=== PATIENT | female | born 1980 | race Caucasian/White ===

== ENCOUNTER 2020-11-22 09:08 | Outpatient (REF) | payer OTHER, SELFPAY | END 2020-11-22 09:09 | disposition home or self-care (01) | LOC: HO.SCI 09:08 | DX: Z13.89 Encounter for screening for other disorder (principal) ==

== ENCOUNTER 2023-08-27 | Outpatient (REF) | payer OTHER, SELFPAY ==
[2023-08-31 03:48] LABS: HPV mRNA E6/E7 rflx Not Detected (Not Detected)
== END 2023-08-27 00:01 ==
LOC: HO.HHCLNP
PROVIDERS: Visit Provider Advanced Practice Midwife
DX: Z12.4 Encounter for screening for malignant neoplasm of cervix (principal); Z11.51 Encounter for screening for human papillomavirus (HPV); N39.3 Stress incontinence (female) (male)
CPT/HCPCS: 87086; 87624; 88142

== ENCOUNTER 2025-03-31 11:21 | Outpatient (REF) | payer OTHER, SELFPAY ==
--- OUTSIDE RECORDS SUMMARY | 2025-02-19 11:30 | XMS_ITS | Continuity of Care Document ---
Author Organization [facility] Address [address] [place] [address] Dr [address] [place] [phone] Phone Care Team Providers Care Mechanical Assembly Technician Name Role Phone Truman OLIVERA, AIDEN, Naresh [...] Mins- [place] & [place] [facility], [address] [place] [address] Dr Odom [address] 1000Sam [place], [id number], [place] tel:[phone] [facility] Lymphedema, not elsewhere classifiedVenou s insufficiency (chronic) (peripheral)Patel n in right legPain in left legRestless legs syndromeHeredit judy lymphedemaCramp and spasmLocalized edema 5 Truman OLIVERA RVT, RPVI Robert. [address] [facility] [address], [place], [place], [id number] , [place]. tel:[phone] [facility], [address] [place] [address] [address] Odom [address] 1000Sam [place], [id number], [place] tel:[phone] [facility] Chronic venous hypertension (idiopathic) with other complications of bilateral lower extremity 5 Truman MDAIDEN RPVI Robert. [address] [facility], [address], [place], [id number] , . tel:[phone] Referring Provider: Naresh Laughlin MD, FAUSTINA WOLFE, [address] [facility] [address], [place], [address] . tel:[phone] Family History Family Member Type Diagnosis Age At Onset No Information Payers Payer name Insurance type Covered libertarian ID Ilsa miller[facility] [id number] Social History Type Description Quantity Date Captured [...] Body mass index (BMI) 31.0-31.9, adult) ordered Appointment Cindy Phan BOOKED Appointment Cindy Phan BOOKED Appointment Cindy Phan BOOKED Appointment Cindy Phan BOOKED History Of Present Illness Encounter Date Complaint History Of Prese nt Illness No Information Functional Status Date Functional Assessmen t No Information Instructions Date Instruction Additional Infor binu Diet education Related to Body mass index [...]
--- OUTSIDE RECORDS SUMMARY | 2025-03-31 12:40 | XMS_ITS | Clinical Summary ---
Author Organization [employer] Address [address] [facility] 7[address] [place] [address] Care Team Providers Care Fundraising Director Name Role Phone Samira Staley Primary Care Provider [phone] Allergies No known active allergies Medications Blood Pressure Monitor [facility] Check BP daily 1 each 03/31/2025 Active Active Problems Problem Noted Date Diagnosed Date Elevated BP without diagnosis of hypertension Assessment & Plan (03/31/2025 11:20 AM EDT): -Goal BP < 130/80 per ACC/AHA guideline (Treatment threshold >=140/90) -Stage I hypertension, possibly transient -Continue working on lifestyle modifications -Recommended self-monitoring BP. -Follow up for BP in 1 mo with our RN. If SBP is elevated at home and at the clinic, start either amlodipine 2.5 mg daily or olmesartan (needs reliable contraception). Mixed anxiety and depressive disorder 01/03/2024 Chronic back pain 01/03/2024 Encounters Date Type Department Care Team Description 03/31/2025 10:45 AM EDT Office Visit [facility] [address] [place] [phone] Misa Kolb MD Routine general medical examination at a health care facility (Primary Dx); Immunity status testing; Vitamin D insufficiency; Elevated BP without diagnosis of hypertension; Colon cancer screening; Dietary counseling; Exercise counseling; Class 1 obesity due to excess calories without serious comorbidity with body mass index (BMI) of 32.0 to 32.9 in adult; Encounter for screening for respiratory tuberculosis 03/31/2025 Travel 03/30/2025 Travel 03/30/[address] [facility] [address] [place] [address] Samira Staley ANP Chart Prep 03/24/[address] [facility] [address] [place] [address] Samira Staley ANP Lab Orders 03/17/2025 Telephone [facility] [address] [place] [address] Samira Staley ANP Referral 01/05/[address] [address] Samira Staley ANP from Last 3 Months Immunizations Immunization Administration Dates Next Due Influenza injectable quadriv alent preservative free 06/20/2023,06/14/2022,08/31/2017 Influenza, IIV3, injectable 10/11/2016,0 06/05/2014,07/11/2013,2011,07/27/2011 Influenza, seasonal, injecta ble, preservative free 06/18/2024 Tdap 03/31/2025,07/31/2014 Social History Tobacco Use Types Packs/Day Years Used Date Smoking Tobacco: Never Smokeless Tobacco: Never Tobacco Cessation:Counseling Given: Not Answered Alcohol Answer Date Recorded How often do you have a drink containing alcohol ? 2 03/31/2025 How many drinks containing a lcohol do you have on a typical day when you are drinking? 1 03/31/2025 How often do you have six or more drinks on one occasion? 1 03/31/2025 Depression Answer Date Recorded Patient Health Questionnaire-9 Score 0 03/31/2025 Patient Health Questionnaire-9 Score 0 03/31/2025 Last PHQ-9: Questionnaire Data Not on file 0 03/31/2025 Housing Stability Answer Date Recorded What is your housing situation today? I have rolan cruz 06/19/[address] you li ve. Do you have problems with any of the following? None of the above 06/19/2024 Food Insecurity Answer Date Recorded Within the past 12 months, y ou worried that your food would run out before you got money to buy more: Never True 06/19/2024 Within the past 12 months,th e food you bought just didn't last and you didn't have enough money to get more: Never True 06/2024 Transportation Answer Date Recorded In the past 12 months, has l ack of transportation kept you from medical appts, meetings, work or from getting things needed for daily living? No 06/19/2024 Utilities Answer Date Recorded In the past 12 months, has t he electric, gas, oil or water company threatened to shut off services in your home? No 06/19/2024 Depression Answer Date Recorded Patient Health Questionnaire-2 Score 0 03/31/2025 Internet Access Answer Date Recorded Internet Access Q1 Yes 06/19/2024 Internet Access Q2 Not on file 06/19/2024 Comments No Sex and Gender Information Value Date Recorded Sex Assigned at Female 07/10/2022 10:36 AM EDT Legal Sex Female 10:36 AM EDT Gender Identity Female 07/10/2022 10:36 AM EDT Sexual Orientation Straight 07/10/2022 10 :36 AM EDT Last Filed Vital Signs Vital Sign Reading Time Taken Comments Blood Pressure 144/92 03/31/2025 11:18 AM EDT Pulse 84 03/31/2025 10:39 AM EDT Temperature 36.4 C (97.6 F) 03/31/2025 10:39 AM EDT Respiratory Rate 16 03/31/2025 10:39 AM EDT Oxygen Saturation 98% 07/31/2023 12:57 PM EST Inhaled Oxygen Concentration - - Weight 87.7 kg (193 lb 6.4 oz) 03/31/2025 10:39 AM EDT Height 165.1 cm (5' 5 ) 03/31/2025 10:39 AM EDT Body Mass Index 32.18 03/31/2025 10:39 AM EDT Plan of Treatment Health Maintenance Due Date Last Done Comments CT Colonography 1979 Colonoscopy 1979 Colorectal Cancer Screening 1979 FIT DNA/Cologuard 1979 FIT 1979 FOBT 1979 HIV Screening 1980 Sigmoidoscopy 1979 Family Planning (PISQ) 1994 Hepatitis B Vaccines (1 of 3 - 19+ 3-dose series) 1998 Mammogram 2019 COVID-19 Vaccine ( season) 2024 10/21/2021, 12/21/2020, 11/30/2020 Influenza Vaccine (#1) 2025 4, 06/20/2023, 06/14/2022, Additional history exists Lipid Panel 06/17/2025 06/17/2020 Alcohol/Substance Use Screening 03/31/2026 03/31/2025 Depression Screening 03/31/2026 03/31/2025, 03/31/20 25 Disability Screening 03/31/2026 03/31/2025 SDOH Screening 03/31/2026 03/31/2025 Tobacco Screening 03/31/2026 03/31/2025 Pap Smear 08/27/2026 08/27/2023 Cervical Cancer Screening 08/27/2028 HPV/Cotest 08/27/2028 08/27/2023, 11/18/2021 Zoster Vaccines (1 of 2) 2029 DTaP/Tdap/Td Vaccines (3 - Td or Tdap) 03/31/2035 03/31/2025, 07/31/2014 RSV Patients and Patients Aged 60 years or older (1 - 1-dose 75+ series) 2054 Hepatitis C Screening Completed 06/17/2020 HIB Vaccines Aged Out No longer eligi ble based on patient's age to complete this topic HPV Vaccines Aged Out No longer eligi ble based on patient's age to complete this topic Hepatitis A Vaccines Aged Out No long er eligible based on patient's age to complete this topic IPV Vaccines Aged Out No longer eligi ble based on patient's age to complete this topic Meningococcal B Vaccine Aged Out No l onger eligible based on patient's age to complete this topic Meningococcal Vaccine Aged Out No maria luisa ilana eligible based on patient's age to complete this topic Pneumococcal Vaccine: Pediatrics (0 to 5 Years) and At-Risk Patients (6 to 49) Years Aged Out No longer eligible based on patient's age to complete this topic RSV under 20 months Aged Out No longe r eligible based on patient's age to complete this topic Rotavirus Vaccines Aged Out No longer eligible based on patient's age to complete this topic Procedures Procedure Name Priority Date/Time Associated Diagnosis Comments HPV MRNA E6/E7 REFLEX TO HPV 16, 18/45 Routine 08/27/2023 2:19 PM EST PAP SMEAR Routine 08/27/2023 2:19 PM EST Cervical cancer screening ZZZ HISTORICAL HEPATITIS C AB W/REFL TO HCV RNA, QN, PCR Routine 06/17/2020 1:14 PM EDT LIPID PANEL, STANDARD Routine 06/17/2020 1:14 PM EDT from Last 3 Months or Most Recently Relevant to Health Maintenance Results * HPV mRNA E6/E7 w/Reflex to HPV Genotypes 16, 18/45 (08/27/2023 2:19 PM EST) HPV nRNA E6/E7 Not Detected Not Detected [facility] Comment:Methodology: Transcr iption-Mediated AmplificationThis assay detects E6/E7 viral messenger RNA (mRNA) from 14high-risk HPV types (16,18,31,33,35,39,45,51,52,56,58,59,66,68).Cervical sources are required for HPV testing.If a vaginal source from a patient who has had atotal hysterectomy with removal of cervix wassubmitted, please contact the testing laboratoryfor alternative testing options.For additional information, please refer tohttp://education.PerSay/faq/IGL276s2(This link if provided for information/educational purposes only.)THIS TEST WAS PERFORMED AT:[facility] [place] [phone] TEE MD HPV mRNA E6/E7 [facility] HPV 16 RNA [facility] HPV 18/45 RNA [facility] 08/27/2023 2:19 PM EST 08/28/2023 8:30 AM EST us Tressa SHABAZZ LAB CYTOLOGY ORDERABLES F inal Result [facility] [address] [place] [phone] * Pap Smear (08/27/2023 2:19 PM EST) Swab Cervix uteri structure / Unknown 08/27/2023 2:19 PM EST 08/28/2023 8:30 AM EST [facility] - 09/05/2023 1:01 PM EST ----- ------- Name: NANCY PHAN Age/Sex: 43/F : 1980 Unit#: [id number] Attend Dr: Re08/27/23 Status: PRE REF Location: .LNP Disch: ----- ------- SPEC : [id number] RECD: 08/28/23 STATUS: SELENA KNUTSON NUM: [id number] KALEN: 08/27/239 [facility] DR: TRESSA BALLESTEROS ENTERED: 08/28/23 SP TYPE: Pap [facility] DR: ORDERED: Pap Smear Interpretation Satisfactory for evaluation. Blood. Negative for intraepithelial lesion or malignancy. HPV mRNA E6/E7: NOT DETECTED This assay detects E6/E7 viral messenger RNA (mRNA) from 14 high-risk HPV types (16, 18, 31, 33, 35, 39, 45, 51, 52, 56, 58, 59, 66, 68) HPV testing performed by [facility], [place], [place]. See reference laboratory portion of the EMR for entire report. Clinical Information LMP: 08/25/2023 Previous PAP test: Unknown date/findings Material Received ThinPrep-Cervical ----- ------- Signed (signature on file) KRISTEN Rudolph ([facility]) 09/05/23 1301 ----- ------- END OF REPORT Tressa Ballesteros [facility] CYTOLOGY ORDERABLES F inal Result [facility] [address] [place] [address] [phone] * HEPATITIS C AB W/REFL TO HCV RNA, QN, PCR (06/17/2020 1:14 PM EDT) HEPATITIS C ANTIBODY NON-REACT CHIDI NON-REACT CHIDI [facility] INDEX 0.02 <1.00 [facility] Comment: HCV antibody was non-reactive. There is no laboratory evidence of HCV infection. In most cases, no further action is required. However, if recent HCV exposure is suspected, a test for HCV RNA (test code 73576) is suggested. For additional information please refer to http://education.PerSay/faq/TME35n2 (This link is being provided for informational/ educational purposes only.) HEPATITIS C ANTIBODY NON-REACT CHIDI NON-REACT CHIDI [facility] INDEX 0.02 <1.00 [facility] Comment: HCV antibody was non-reactive. There is no laboratory evidence of HCV infection. In most cases, no further action is required. However, if recent HCV exposure is suspected, a test for HCV RNA (test code 29350) is suggested. For additional information please refer to http://education.PerSay/faq/GVZ09b4 (This link is being provided for informational/ educational purposes only.) 06/17/2020 1:14 PM EDT us Historical Provider HISTORICAL/NON ORDERABLE LABS Final Result [facility] [address] [place] [address], * LIPID PANEL, STANDARD (06/17/2020 1:14 PM EDT) Triglycerides 129 <150 mg/dL [facility] Cholesterol, Total 175 <200 mg/dL [facility] HDL Cholesterol 53 > OR = 50 mg/dL [facility] Triglycerides 129 <150 mg/dL [facility] LDL Cholesterol 99 mg/dL (calc) [facility] Comment: Reference range: <100 Desirable range <100 mg/dL for primary prevention; <70 mg/dL for patients with CHD or diabetic patients with > or = 2 CHD risk factors. LDL-C is now calculated using the Brigido-Jacobo calculation, which is a validated novel method providing better accuracy than the Friedewald equation in the estimation of LDL-C. Brigido GILES et al. KI. 2013;310(19): 2668-8340 (http://education.Ravti.VaultLogix/faq/RBN477) Chol/HDLC Ratio 3.3 <5.0 (calc) [facility] Non-HDL Cholesterol 122 <130 mg/dL (calc) [facility] Comment: For patients with diabetes plus 1 major ASCVD risk factor, treating to a non-HDL-C goal of <100 mg/dL (LDL-C of <70 mg/dL) is considered a therapeutic option. HDL Cholesterol 53 > OR = 50 mg/dL [facility] Non-HDL Cholesterol 122 <130 mg/dL (calc) [facility] Comment: For patients with diabetes plus 1 major ASCVD risk factor, treating to a non-HDL-C goal of <100 mg/dL (LDL-C of <70 mg/dL) is considered a therapeutic option. Cholesterol, Total 175 <200 mg/dL [facility] LDL Cholesterol 99 mg/dL (calc) [facility] Comment: Reference range: <100 Desirable range <100 mg/dL for primary prevention; <70 mg/dL for patients with CHD or diabetic patients with > or = 2 CHD risk factors. LDL-C is now calculated using the Capo calculation, which is a validated novel method providing better accuracy than the Friedewald equation in the estimation of LDL-C. Brigido SS et al. KI. 2013;310(19): 0920-0866 (http://education.Skillset/faq/CDS283) Chol/HDLC Ratio 3.3 <5.0 (calc) [facility] 06/17/2020 1:14 PM EDT us Historical Provider LAB BLOOD ORDERABLES Sandy mandujano Result [facility] [address] from Last 3 Months or Most Recently Relevant to Health Maintenance Insurance [facility] Care Teams Fundraising Director Relationship Specialty Start Date End Date Samira Staley ANP [address] [place] [phone] PCP - General Family Medicine 04/28/21
[2025-03-31 14:20] LABS: HBS Num1 28.25 mIU/mL (0-7.99); ~Hepatitis B Surface Antibody REACTIVE (Nonreactive)
[2025-04-03 05:38] LABS: TS Negative Control Passed; TS Panel A 0; TS Panel B 1; TS Positive Control Passed; TSpotTB Negative (Negative)
== END 2025-03-31 11:22 | disposition home or self-care (01) ==
LOC: HO.HHCL 11:21
PROVIDERS: PCP Family Medicine; Visit Provider Family Medicine
DX: Z01.84 Encounter for antibody response examination (principal); Z11.1 Encounter for screening for respiratory tuberculosis; E55.9 Vitamin D deficiency, unspecified
CPT/HCPCS: 36415; 82306; 86481; 86706

== ENCOUNTER 2025-04-27 15:41 | Outpatient (REF) | payer OTHER, SELFPAY ==
--- OUTSIDE RECORDS SUMMARY | 2025-02-19 11:30 | XMS_ITS | Continuity of Care Document ---
Author Organization [facility] Address [address] [place] [address] [address] [place] [address] Phone Care Team Providers Care General Passenger Agent Name Role Phone Truman OLIVERA, AIDEN, Naresh WEEMS Unavailable U navailable Procedures Procedure Date Office/Oupt E&M New Pt 30 Mins- CT & [place] Duplex Scan-extrem Veins; Comp- CT & [place] Advance Directives Directive Yes / No Effective Date File Name No Information Encounters Encounter Description Practice Location Reason(s) For Visit Diagnoses Date Provider Providers Copied on Encounter Office/Oupt E&M New Pt 30 Mins- [place] & [place] [facility], [address] [place] [address] Dr Odom [address]Sam [place], [id number], [place] tel:[phone] [facility] Lymphedema, not elsewhere classifiedVenou s insufficiency (chronic) (peripheral)Patel n in right legPain in left legRestless legs syndromeHeredit judy lymphedemaCramp and spasmLocalized edema 5 Truman OLIVERA RVT, RPVI Robert. [address] [facility] [address], [place], [place], [id number] , [place]. tel:[phone] [facility], [address] [place] [address] Dr Odom [address]Sam [place], [id number], [place] tel:[phone] [facility] Chronic venous hypertension (idiopathic) with other complications of bilateral lower extremity 5 Truman MDAIDEN RPVI Robert. [address] [facility], [address], [place], [id number] , . tel:[phone] Referring Provider: Naresh Laughlin MD, AIDEN, FAUSTINA, [address] [facility] [address], [place], [address] . tel:[phone] Family History Family Member Type Diagnosis Age At Onset No Information Payers Payer name Insurance type Covered alliance party ID Ilsa miller(justiceAppticles [facility] [id number] Social History Type Description Quantity Date Captured Comments Alcohol Use Details Unknown Caffeine Use Details Unknown Tobacco Use Status Current non-smoker Smoking Status Never Smoker Non-Smoking Tobacco Use Details : No Details Available : No Details Available Sex Female Vital Signs Date / Time: Height Weight BMI Pulse Rate Blood Pressure Temperature Respiratory Rate Body Surface Area Head Circumference Head Circ. Percentile Wt./Cali. Percentile BMI percentile Pulse Ox Inhaled Ox 85.730 kg (189.00 lbs) 31.5 3 kg/m eter (2) 120/80 mm[Hg] Chief Complaint And Reason For Visit No Information Reason For Referral Reason For Referral No Information Plan Of Treatment Date Type Action Status Goal Diet education completed Referral Ordered: Weight management: Referral to physician timeframe: 3 Months (related to Body mass index (BMI) 31.0-31.9, adult) ordered History Of Present Illness Encounter Date Complaint History Of Prese nt Illness No Information Functional Status Date Functional Assessmen t No Information Instructions Date Instruction Additional Infor mation Diet education Related to Body mass index (BMI) 31.0-31.9, adult Giving Encouragement to exercise Related to Body mass index (BMI) 31.0-31.9, adult Lifestyle education Related to B hoang mass index (BMI) 31.0-31.9, adult Patient education booklet given Related to Venous insufficiency (chronic) (peripheral) Assessments Type Assessment Date No Information Patient Care Teams Name Effective Dates (start - stop) Status Members No Information
--- NOTE | ~2025-04-27 | MM_ITS ---
EXAMINATION: MM SCREENING DIGITAL BREAST TOMOSYNTHESIS, BILATERAL CLINICAL INFORMATION: Screening. Asymptomatic. COMPARISON: Mammography: Baseline. TECHNIQUE: Digital breast mammography with tomosynthesis is performed in both the craniocaudal and mediolateral oblique views along with computer-aided detection (CAD). FINDINGS: There are scattered areas of fibroglandular density (ACR BI-RADS breast composition Category b). Left: Normal-appearing intramammary lymph node upper outer quadrant posterior depth. Focal asymmetry upper outer breast anterior to middle depth. No suspicious calcifications or other abnormal findings. Right: There are no significant masses, abnormal calcifications, or other abnormalities. MM/MM tomosynthesis screening BI IMPRESSION: Additional imaging is recommended ASSESSMENT: BI-RADS BI-RADS 0 - Incomplete: Needs additional Imaging. RECOMMENDATION: 1. Additional views of the left breast. 2. Targeted ultrasound if warranted after review of the additional views. 3. Radiology department staff will contact the patient for additional imaging. Additional Imaging required This examination should not preclude the clinical evaluation of a suspicious palpable abnormality. This patient's information was entered into a reminder system with a target due date for their next mammogram. Electronically signed by: Kathleen Hein DO 04/29/2025 10:04 AM EDT
--- OUTSIDE RECORDS SUMMARY | 2025-04-27 16:04 | XMS_ITS | Encounter Summary ---
Author Organization [employer] Address [address] [facility] [address] [facility] [address] [place] [address] Care Team Providers Care Rn Oncology Research Name Role Phone Samira Staley Primary Care Provider [phone] Encounter Details Date Type Department Care Team ([facility] st Contact Info) Description 12/23/[address] [facility] [address] [place], [place] [phone] Samira Staley ANP [address] [place], [place] [phone] Social History Tobacco Use Types Packs/Day Years Used Date Smoking Tobacco: Never Smokeless Tobacco: Never Housing Stability Answer Date Recorded What is [...] off services in your home? No 06/19/2024 Internet Access Answer Date Recorded Internet Access Q1 Yes 06/19/2024 Internet Access Q2 Not on file 06/19/2024 Comments No Sex and Gender Information Value Date Recorded Sex Assigned at Female 07/10/2022 10:36 AM EDT Legal Sex Female 10:36 AM EDT Gender Identity Female 07/10/2022 10:36 AM EDT Sexual Orientation Straight 07/10/2022 10 :36 AM EDT documented as of this encounter Miscellaneous Notes * Telephone Encounter - Amita Gamino - 12/23/2024 1:22 PM EDT Tc from pt stating received a message to make a pap smear appointment. Author not sure recall date in the chart 2027 not clear for when they want her to have it done. documented in this encounter Plan of Treatment Upcoming Encounters Date Type Department Care Team (Late st Contact Info) Description 05/01/2025 1:15 PM EDT Office Visit [address] [address] Samira Staley ANP [address] [place] [phone] 05/01/2025 3:30 PM EDT Clinical Support [address] [address] 06/15/2025 3:15 PM EDT Office Visit [address] [address] Samira Stalye ANP [address] [place] [phone] documented as of this encounter Visit Diagnoses Not on filedocumented in this encounter Care Teams Rn Oncology Research Relationship Specialty Start Date End Date Samira Staley ANP [address] [place] [phone] PCP - General Family Medicine 04/28/21 documented as of this encounter
== END 2025-04-27 15:42 | disposition home or self-care (01) ==
LOC: HO.MAMMO 15:41
PROVIDERS: PCP Nurse Practitioner Primary Care; Visit Provider Nurse Practitioner Primary Care
DX: Z12.31 Encounter for screening mammogram for malignant neoplasm of breast (principal)
CPT/HCPCS: 77063; 77067

== ENCOUNTER → 2025-04-27 15:45 | Outpatient (BNV) | payer OTHER, SELFPAY | PROVIDERS: PCP Nurse Practitioner Primary Care; Visit Provider Internal Medicine | DX: Z12.31 Encounter for screening mammogram for malignant neoplasm of breast (principal) | CPT/HCPCS: 77063; 77067 ==

== ENCOUNTER 2025-05-08 12:13 | Outpatient (REF) | payer OTHER, SELFPAY ==
--- NOTE | ~2025-05-08 | US_ITS ---
EXAMINATIONS: 1. MM DIAGNOSTIC DIGITAL BREAST TOMOSYNTHESIS, LEFT 2. Targeted ultrasound of the left breast CLINICAL INFORMATION: Callback from baseline screening for left breast focal asymmetry in the upper outer quadrant anterior to middle depth. COMPARISON: April 27, 2025 TECHNIQUE: Digital breast tomosynthesis is performed in full-field ML 90 degrees along with computer-aided detection (CAD). Synthesized 2D images are generated from the tomosynthesis. Spot compression tomosynthesis images were also obtained. FINDINGS: BREAST COMPOSITION: There are scattered areas of fibroglandular density (ACR BI-RADS breast composition Category b). LEFT BREAST: Approximately 0.7 cm focal asymmetry persists on today's images in the upper outer quadrant at approximately 7 cm from the nipple (spot MLO 13/65, spot CC 38/57) . Targeted ultrasound of the left breast was performed as location of the mammographic finding. The survey shows a 0.4 x 0.1 x 0.4 cm hypoechoic solid mass surrounded by an echogenic halo, with a total size of 0.8 x 0.5 x 0.7 cm at 2 o'clock position at 7 cm from the nipple. Minimal vascularity demonstrated at the periphery of the mass with color Doppler evaluation. This correlates with the mammographic finding. US/US breast LT limited mamm only IMPRESSION: LEFT BREAST: 0.7 cm hypoechoic mass with echogenic halo at 2 o'clock position 7 cm from the nipple. Suspicious findings. Ultrasound-guided needle core biopsy is recommended. ASSESSMENT: BI-RADS 4 - Suspicious finding RECOMMENDATION: Biopsy recommended Results were discussed with the patient at time of visit. This patient's information was entered into a reminder system with a target due date for their next mammogram. Electronically signed by: Megan Monaco MD 05/08/2025 01:15 PM EDT
--- OUTSIDE RECORDS SUMMARY | 2025-05-08 12:55 | XMS_ITS | Encounter Summary ---
Author Organization [employer] Address [address] [place] [address] Care Team Providers Care Corporate General Manager Name Role Phone Samira Staley Primary Care Provider [phone] Encounter Details Date Type Department Care Team ([facility] st Contact Info) Description 12/23/2024 Telephone [facility] [address] [place], [place] [phone] Samira Staley ANP [address] [place], [place] [phone] Social History Tobacco Use Types Packs/Day Years [...] Care Team (Late st Contact Info) Description 06/15/2025 3:15 PM EDT Office Visit [facility] [address] [place] [address] Samira Staley ANP [address] [place] [address] documented as of this encounter Visit Diagnoses Not on filedocumented in this encounter Care Teams Corporate General Manager Relationship Specialty Start Date End Date Samira Staley ANP [address] [place] [address] PCP - General Family Medicine 04/28/21 documented as of this encounter
--- OUTSIDE RECORDS SUMMARY | 2025-05-08 12:56 | XMS_ITS | Clinical Summary ---
Author Organization [employer] Address [address] [facility] [address] [place] [address] Care Team Providers Care Used Car Salesperson Name Role Phone Luís aTmmi HERNANDEZ Primary Care Provider [phone] Allergies No known active allergies Medications Blood Pressure Monitor misc Check BP daily 1 each 03/31/2025 Active famotidine (Pepcid) 20 MG tabletIndication s:Gastroesophage al reflux disease, unspecified whether esophagitis present Take 1 tablet twice daily as needed for acid reflux 60 tablet 05/01/2025 Active Active Problems Problem Noted Date Diagnosed Date Elevated BP without diagnosis of hypertension Assessment & Plan (04/03/2025 10:47 AM EDT): -Goal BP < 130/80 per ACC/AHA guideline (Treatment threshold >=140/90) -Stage I hypertension, possibly transient -Continue working on lifestyle modifications -Recommended self-monitoring BP. -Follow up for BP in 1 mo with our RN. If SBP is elevated at home and at the clinic, start either amlodipine 2.5 mg daily or olmesartan (needs reliable contraception). -Consider asking alcohol and sodium intake again Mixed anxiety and depressive disorder 01/03/2024 Assessment & Plan (04/03/2025 10:44 AM EDT): - PHQ-9 score 0 and CHYNA-7 score of 0 on 03/29/2025 - Currently not on medication - Continue current mental health and wellness practice Chronic back pain 01/03/2024 Encounters Date Type Department Care Team Description 05/01/2025 1:15 PM EDT Office Visit [facility] [place] [place] [address] Tammi Rock ANP Gastroesophageal reflux disease, unspecified whether esophagitis present (Primary Dx) 05/01/2025 Travel 04/30/2025 Telephone [facility] [place] [address] Tammi Rock ANP chartprep 04/27/2025 Orders Only [address] [address] Tammi Rock ANP 04/27/[address] [address] Tammi Rock ANP Nurse Triage 04/21/[address] [address] Tammi Rock ANP Results 04/01/2025 Results Follow-Up [address] [address] Misa Kolb MD Vitamin D, 25-Hydroxy, Total, Immunoassay, Hepatitis B Surface Antibody, Qualitative 03/31/2025 10:45 AM EDT Office Visit [facility] [place] [address] Misa Kolb MD Routine general medical examination at a health care facility (Primary Dx); Immunity status testing; Vitamin D insufficiency; Elevated BP without diagnosis of hypertension; Colon cancer screening; Dietary counseling; Exercise counseling; Class 1 obesity due to excess calories without serious comorbidity with body mass index (BMI) of 32.0 to 32.9 in adult; Encounter for screening for respiratory tuberculosis; Mixed anxiety and depressive disorder 03/31/2025 Travel 03/30/2025 Travel 03/30/2025 Telephone [facility] [place] [address] Tammi Rock ANP Chart Prep 03/24/[address] [address] Tammi Rock ANP Lab Orders 03/17/[address] [address] Tammi Rock ANP Referral from Last 3 Months Immunizations Immunization Administration [...] Sign Reading Time Taken Comments Blood Pressure 110/68 05/01/2025 1:24 PM EDT Pulse 80 05/01/2025 1:24 PM EDT Temperature 36.8 C (98.2 F) 05/01/2025 1:24 PM EDT Respiratory Rate 14 05/01/2025 1:24 PM EDT Oxygen Saturation 94% 05/01/2025 1:24 PM EDT Inhaled Oxygen Concentration - - Weight 85 kg (187 lb 6.4 oz) 05/01/2025 1:24 PM EDT Height 165.1 cm (5' 5 ) 03/31/2025 10:39 AM EDT Body Mass Index 31.18 03/31/2025 10:39 AM EDT Plan of Treatment Upcoming Encounters Date Type Department Care Team (Late st Contact Info) Description 06/15/2025 3:15 PM EDT Office Visit [facility] [address] [place] [address] Tammi Rock, ANP [address] [place], [place] [phone] Health Maintenance Due Date Last Done Comments CT Colonography 1980 Colonoscopy 1980 Colorectal Cancer Screening 1980 FIT DNA/Cologuard 1979 FIT 1979 FOBT 1980 HIV Screening 1980 Sigmoidoscopy 1980 Family Planning (PISQ) 1994 COVID-19 Vaccine ( season) 2024 10/21/2021, 12/21/2020, 11/30/2020 Influenza Vaccine (#1) 2025 , 06/20/2023, 06/14/2022, Additional history exists Lipid Panel 06/17/2025 06/17/2020 Alcohol/Substance Use Screening 03/31/2026 03/31/2025 Depression Screening 03/31/2026 03/31/2025, 03/31/20 25 Disability Screening 03/31/2026 03/31/2025 SDOH Screening 03/31/2026 03/31/2025 Tobacco Screening 05/01/2026 05/01/2025 Pap Smear 08/27/2026 08/27/2023 Mammogram 04/27/2027 04/27/2025 Cervical Cancer Screening 08/27/2028 HPV/Cotest 08/27/2028 08/27/2023, [...] patient's age to complete this topic Hepatitis B Vaccines Discontinued IPV Vaccines Aged Out No longer eligi [...] Procedure Name Priority Date/Time Associated Diagnosis Comments BI MAMMOGRAM SCREENING TOMOSYNTHESIS BILATERAL Routine 04/27/2025 3:45 PM EDT T-SPOT(R).TB Routine 03/31/2025 11:42 AM EDT Encounter for screening for respiratory tuberculosis HEPATITIS B SURFACE ANTIBODY, QUALITATIVE Routine 03/31/2025 11:42 AM EDT Immunity status testing VITAMIN D,25-OH,TOTAL,IA Routine 03/31/2025 11:42 AM EDT Vitamin D insufficiency HPV MRNA E6/E7 REFLEX TO HPV 16, 18/45 Routine 08/27/2023 2:19 PM EST PAP SMEAR Routine 08/27/2023 2:19 PM EST Cervical cancer screening ZZZ HISTORICAL HEPATITIS C AB W/REFL TO HCV RNA, QN, PCR Routine 06/17/2020 1:14 PM EDT LIPID PANEL, STANDARD Routine 06/17/2020 1:14 PM EDT from Last 3 Months or Most Recently Relevant to Health Maintenance Results * BI Mammogram Screening Tomosynthesis Bilateral (04/27/2025 3:45 PM EDT) Anatomical Region Laterality Modality Breast Bilateral Mammography 04/27/2025 3:45 PM EDT Narrative 04/29/2025 10:07 AM EDT [facility] [address] [place] [address] Mammography Report Signed Patient: Nancy Phan MR#: [id number] : 1980 Acct:[id number] Age/Sex: 45 / F ADM Date: 04/27/25 Loc: HO.MAMMO Attending Dr: Tammi Rock NP Ordering Physician: TAMMI ROCK NP Results: 0Incomplete : Needs Additional Imaging Evaluation Date of Service: 04/27/25 Follow Up: Additional Imagi ng Procedure(s): MM tomosynthesis screening BI Accession Number(s): [id number] cc: TAMMI ROCK NP EXAMINATION: MM SCREENING DIGITAL BREAST TOMOSYNTHESIS, BILATERAL CLINICAL INFORMATION: Screening. Asymptomatic. COMPARISON: Mammography: Baseline. TECHNIQUE: Digital breast mammography with tomosynthesis is performed in both the craniocaudal and mediolateral oblique views along with computer-aided detection (CAD). FINDINGS: There are scattered areas of fibroglandular density (ACR BI-RADS breast composition Category b). Left: Normal-appearing intramammary lymph node upper outer quadrant posterior depth. Focal asymmetry upper outer breast anterior to middle depth. No suspicious calcifications or other abnormal findings. Right: There are no significant masses, abnormal calcifications, or other abnormalities. MM/MM tomosynthesis screening BI IMPRESSION: Additional imaging is recommended ASSESSMENT: BI-RADS BI-RADS 0 - Incomplete: Needs additional Imaging. RECOMMENDATION: 1. Additional views of the left breast. 2. Targeted ultrasound if warranted after review of the additional views. 3. Radiology department staff will contact the patient for additional imaging. Additional Imaging required This examination should not preclude the clinical evaluation of a suspicious palpable abnormality. This patient's information was entered into a reminder system with a target due date for their next mammogram. Electronically signed by: Kathleen Hein DO 04/29/2025 10:04 AM EDT Dictated By: Kathleen Hein DO Signed By: <Electronically signed by Kathleen Hein DO in OV> 04/29/25 1004 DD/ 1545 TD/TT: 04/27/25 1605 Rfid Developer: Procedure Note Donotuseinterpreter, Image - 04/29/2025 [facility] [address] [place] [address] Mammography Report Signed Patient: Krista Phan#: [id number] : 1980Acct:[id number] Age/Sex: 45 / FADM Date: 04/27/25 Loc: HO.MAMMO Attending Dr: Tammi Rock NP Ordering Physician: TAMMI ROCK NPResults: 0Incomplete : Needs Additional Imaging Evaluation Date of Service: 04/27/25Follow Up: Additional Imagi ng Procedure(s): MM tomosynthesis screening BI Accession Number(s): [id number] cc: TAMMI ROCK NP EXAMINATION: MM SCREENING DIGITAL BREAST TOMOSYNTHESIS, BILATERAL CLINICAL INFORMATION: Screening. Asymptomatic. COMPARISON: Mammography: Baseline. TECHNIQUE: Digital breast mammography with tomosynthesis is performed in both the craniocaudal and mediolateral oblique views along with computer-aided detection (CAD). FINDINGS: There are scattered areas of fibroglandular density (ACR BI-RADS breast composition Category b). Left: Normal-appearing intramammary lymph node upper outer quadrant posterior depth. Focal asymmetry upper outer breast anterior to middle depth. No suspicious calcifications or other abnormal findings. Right: There are no significant masses, abnormal calcifications, or other abnormalities. MM/MM tomosynthesis screening BI IMPRESSION: Additional imaging is recommended ASSESSMENT: BI-RADS BI-RADS 0 - Incomplete: Needs additional Imaging. RECOMMENDATION: 1. Additional views of the left breast. 2. Targeted ultrasound if warranted after review of the additional views. 3. Radiology department staff will contact the patient for additional imaging. Additional Imaging required This examination should not preclude the clinical evaluation of a suspicious palpable abnormality. This patient's information was entered into a reminder system with a target due date for their next mammogram. Electronically signed by: Kathleen Hein DO 04/29/2025 10:04 AM EDT RP Dictated By: Kathleen Hein DO Signed By: <Electronically signed by Kathleen Hein DO in OV> 04/29/25 1004 DD/ 1545 TD/TT: 04/27/25 1605 Rfid Developer: [facility] BI PROCEDURES Final Result * Vitamin D, 25-Hydroxy, Total, Immunoassay (03/31/2025 11:42 AM EDT) Vitamin D 25-OH Total 51.6 >30 ng/mL [facility] Comment: Health Based Reference Values*< 20 ng/mL Geocchugl57-42 ng/mL Insufficient> 30 ng/mL Sufficient*Paul HOU. N Engl J Med. 2007;357:266-280There is no well-established upper level of normal vitamin Dlevels. Some laboratories use 50 ng/mL as an upper limit ofnormal. However, toxicity is patient-dependent and may occurat any level. Careful correlation with the patient'spresentation is necessary and, if there is concern forvitamin D toxicity, treatment should be consideredirrespective of the serum level.Care must be taken in interpreting Vitamin D results fromdifferent laboratories and methodologies. Published datademonstrated that results from patients undergoinghemodialysis may show a negative bias when tested withvarious automated 25-OH vitamin D assays when compared toLC-MS/MS.When testing samples from patients whose predominant form ofVitamin D is Vitamin D2, such as patients receiving VitaminD2 supplementation, results that are subtherapeutic shouldbe confirmed with another method such as LC-MS/MS. Blood Venous blood specimen / Unknown 03/31/2025 11:42 AM EDT 03/31/2025 1:25 PM EDT us Misa Kolb MD LAB BLOOD ORDERABLES Final Resul t [facility] [address] [place] [address] [phone] * T-SPOT??.TB (03/31/2025 11:42 AM EDT) Pathologist [facility] T Spot TB Negative Negative [facility] Comment:A negative test resu lt does not exclude the possibilityof exposure to or infection with Mycobacteriumtuberculosis (M. tuberculosis). Patients with recentexposure to TB infected individuals exhibiting anegative T-SPOT.TB result should be considered forretesting within 6 weeks or if other relevant clinicalsymptoms indicate. Results from T-SPOT.TB testing mustbe used in conjunction with each individual'sepidemiological history, current medical status,and results of other diagnostic evaluations.The T-SPOT.TB test is qualitative and results arereported as positive, borderline, or negative, giventhat the test controls perform as expected. In linewith the Centers for Disease Control and Prevention's2010 recommendation to report quantitative measurementsalongside the qualitative result, the laboratoryprovides spot counts for informational purposes only.The T-SPOT.TB test should not be interpreted as aquantitative test. TS PANEL A 0 [facility] TS PANEL B 1 [facility] Negative Control Passed [facility] Positive Control Passed [facility] Comment:For additional infor binu, please refer tohttp://education.Signature/faq/TFB546(This link is being provided for informational/educational purposes only.)THIS TEST WAS PERFORMED AT:[employer] [place] [address]MRNMBRJJAYDEN ESPANA MD,PHD 03/31/2025 11:4 2 AM EDT 03/31/2025 1:25 PM EDT Misa Kolb MD LAB BLOOD ORDERABLES Final Resul t Performing Organization Address City/[facility]/ZIP Co de Phone Number [facility] [address] [place] [phone] * Hepatitis B Surface Antibody, Qualitative (03/31/2025 11:42 AM EDT) [facility] ~Hepatitis B Surface Antibody REACTIVE Nonreactive [facility] Comment:REACTIVE: > 11.99 mI U/mL Blood Venous blood specimen / Unknown 03/31/2025 11:42 AM EDT 03/31/2025 1:25 PM EDT Misa Kolb MD LAB BLOOD ORDERABLES Final Resul t Performing Organization Address [facility] Co de Phone Number [facility] [address] [place] [phone] * HPV mRNA E6/E7 w/Reflex to HPV Genotypes 16, 18/45 (08/27/2023 2:19 PM EST) [facility] HPV nRNA E6/E7 Not Detected Not Detected [facility] Comment:Methodology: Transcr iption-Mediated AmplificationThis assay detects E6/E7 viral messenger RNA (mRNA) from 14high-risk HPV types (16,18,31,33,35,39,45,51,52,56,58,59,66,68).Cervical sources are required for HPV testing.If a vaginal source from a patient who has had atotal hysterectomy with removal of cervix wassubmitted, please contact the testing laboratoryfor alternative testing options.For additional information, please refer tohttp://education.Signature/faq/DVP841a6(This link if provided for information/educational purposes only.)THIS TEST WAS PERFORMED AT:[employer] [place] [id number] TEE MD HPV mRNA E6/E7 TNP [facility] HPV 16 RNA TNP [facility] HPV 18/45 RNA [facility] 08/27/2023 2:19 PM EST 08/28/2023 8:30 AM EST us Tressa Ballesteros [facility] CYTOLOGY ORDERABLES F inal Result [facility] [address] [place] [phone] * Pap Smear (08/27/2023 2:19 PM EST) Swab Cervix uteri structure / Unknown 08/27/2023 2:19 PM EST 08/28/2023 8:30 AM EST Narrative [facility] - 09/05/2023 1:01 PM EST ----- ------- Name: NANCY PHAN Age/Sex: 43/F : 1980 Unit#: [id number] Attend Dr: Re08/27/23 Status: PRE REF Location: [facility] Disch: ----- ------- SPEC : [id number] RECD: 08/28/23 STATUS: SELENA KNUTSON NUM: [id number] KALEN: 08/27/[address] [facility] DR: TRESSA BALLESTEROS CNM ENTERED: 08/28/23 SP TYPE: Pap Smr OT DR: ORDERED: Pap Smear Interpretation Satisfactory for evaluation. Blood. Negative for intraepithelial lesion or malignancy. HPV mRNA E6/E7: NOT DETECTED This assay detects E6/E7 viral messenger RNA (mRNA) from 14 high-risk HPV types (16, 18, 31, 33, 35, 39, 45, 51, 52, 56, 58, 59, 66, 68) HPV testing performed by [employer], [place], [place]. See reference laboratory portion of the EMR for entire report. Clinical Information LMP: 08/25/2023 Previous PAP test: Unknown date/findings Material Received ThinPrep-Cervical ----- ------- Signed (signature on file) KRISTEN Rudolph (ASCP) 09/05/23 1301 ----- ------- END OF REPORT Tressa Ballesteros CNM LAB CYTOLOGY ORDERABLES F inal Result [facility] [address] [place] [phone] * HEPATITIS C AB W/REFL TO HCV RNA, QN, PCR (06/17/2020 1:14 PM EDT) HEPATITIS C ANTIBODY NON-REACT CHIDI NON-REACT [facility] INDEX 0.02 <1.00 [facility] Comment: HCV antibody was non-reactive. There is no laboratory evidence of HCV infection. In most cases, no further action is required. However, if recent HCV exposure is suspected, a test for HCV RNA (test code 71711) is suggested. For additional information please refer to http://Kuddle/faq/HHK79n0 (This link is being provided for informational/ educational purposes only.) HEPATITIS C ANTIBODY NON-REACT CHIDI NON-REACT CHIDI [facility] INDEX 0.02 <1.00 [facility] Comment: HCV antibody was non-reactive. There is no laboratory evidence of HCV infection. In most cases, no further action is required. However, if recent HCV exposure is suspected, a test for HCV RNA (test code 24320) is suggested. For additional information please refer to http://Kuddle/faq/EWS68u7 (This link is being provided for informational/ educational purposes only.) 06/17/2020 1:14 PM EDT us Historical Provider HISTORICAL/NON ORDERABLE LABS Final Result [facility] [address] * LIPID PANEL, STANDARD (06/17/2020 1:14 PM [...] LDL-C. Brigido SS et al. KI. 2013;310(19): 1455-3133 (http://education.Fanplayr.com/faq/GMB466) Chol/HDLC Ratio 3.3 <5.0 (calc) [facility] [...] LDL-C. Brigido SS et al. KI. 2013;310(19): 9088-5681 (http://education.Fanplayr.com/faq/GCU651) Chol/HDLC Ratio 3.3 <5.0 (calc) [facility] 06/17/2020 1:14 PM EDT us Historical Provider LAB BLOOD ORDERABLES Sandy mandujano Result [facility] [address] from Last 3 Months or Most Recently Relevant to Health Maintenance Insurance , [address] [place] [address] Care Teams Used Car Salesperson Relationship Specialty Start Date End Date Tammi Rock ANP [address] [place] [phone] PCP - General Family Medicine 04/28/21
--- OUTSIDE RECORDS SUMMARY | 2025-05-08 12:56 | XMS_ITS | Encounter Summary ---
Author Organization [employer] Address [address] [facility] [address] [place] [address] Care Team Providers Care Field Radio Operator Name Role Phone Samira Staley Primary Care Provider [phone] Reason for Visit * Reason Onset Date Comments Nurse Triage 04/27/2025 Encounter Details Date Type Department Care Team ([facility] st Contact Info) Description 04/27/2025 Telephone [facility] [address] [place], [place] [phone] Samira Staley ANP [address] [place] [address] Nurse Triage Social History Tobacco Use Types Packs/Day Years Used Date Smoking Tobacco: Never Smokeless Tobacco: Never Alcohol Answer Date Recorded How often do [...] encounter Miscellaneous Notes * Telephone Encounter - Rosa Izaguirre RN - 04/27/2025 12:51 PM EDT Triage call Pt reports esophagus pain. Pt reports a terrible burning sensation, upper abdomen with some shooting chest pain which occurred last evening. Pt did to to ED [facility] but didn't stay to be evaluated because the pain subsided. Pt reports the pain is not too bad today. Pt has been taking OTC p rilosec without effect and chewable tums do not help either. Pt is requesting to see PCP for this problem. ASK apt with PIPE LINE MAINTENANCE SUPERVISOR Luís 05/01/25 @ 115pm. Pt is aware of nurse visit apt at 330pm that day as well. Insurance is verified as active. Protocol Used: Abdominal Pain - Upper (Adult) Care Advice Discussed: * Reassurance and Education - Stomach Pain * Antacid Medicine * Drink Clear Fluids * Food Recommendations to Reduce Reflux * Reasons To Call Back - Severe pain present over 1 hour - Constant pain present over 2 hours - Moderate pains come and go for more than 24 hours - Mild pains come and go for more than 72 hours - You become worse * Telephone Encounter - Rebekah Avila - 04/27/2025 11:37 AM EDT Tc from pt stating she is experiencing Esophagus pain Pt stated she went to [facility] and vitals were all normal. Pt stated she left before being evaluated by a provider due to wait time. Contact pt at [phone] documented in this encounter Plan of Treatment Upcoming Encounters Date Type Department Care Team (Late st Contact Info) Description 06/15/2025 3:15 PM EDT Office Visit [facility] [address] [place] [phone] Samira Staley ANP [address] [place] [address] documented as of this encounter Visit Diagnoses Not on filedocumented in this encounter Additional Health Concerns Assessment Noted Time PHQ-9 Depression Total Score: 0 03/31/20 25 10:41 AM EDT documented as of this encounter Care Teams Field Radio Operator Relationship Specialty Start Date End Date Samira Staley ANP [address] [place] [address] PCP - General Family Medicine 04/28/21 documented as of this encounter
--- OUTSIDE RECORDS SUMMARY | 2025-05-08 12:56 | XMS_ITS | Encounter Summary ---
Author Organization [employer] Address [address] [facility] [address] [place] [address] Care Team Providers Care Spike Machine Heater Name Role Phone Samira Staley Primary Care Provider [phone] Encounter Details Date Type Department Care Team ([facility] st Contact Info) Description 04/01/2025 Results Follow-Up [facility] [address] [place], [place] [phone] Misa Kolb MD [address] [place] [address] Vitamin D, 25-Hydroxy, Total, Immunoassay, Hepatitis B Surface Antibody, Qualitative Social History Tobacco Use Types Packs/Day Years [...] AM EDT documented as of this encounter Plan of Treatment Upcoming Encounters Date Type Department Care Team (Late st Contact Info) Description 06/15/2025 3:15 PM EDT Office Visit [facility] [address] [place] [address] Samira Staley ANP [address] [place] [address] documented as of this encounter Visit Diagnoses Not on filedocumented in this encounter Additional Health Concerns Assessment Noted Time PHQ-9 Depression Total Score: 0 03/31/20 25 10:41 AM EDT documented as of this encounter Care Teams Spike Machine Heater Relationship Specialty Start Date End Date Samira Staley ANP [address] [place] [address] PCP - General Family Medicine 04/28/21 documented as of this encounter
== END 2025-05-08 12:14 | disposition home or self-care (01) ==
LOC: HO.MAMMO 12:13
PROVIDERS: PCP Nurse Practitioner Primary Care; Visit Provider Nurse Practitioner Primary Care
DX: Z12.31 Encounter for screening mammogram for malignant neoplasm of breast (principal); N64.89 Other specified disorders of breast
CPT/HCPCS: 76642; 77061; 77065

== ENCOUNTER 2025-05-08 13:20 | Outpatient (REF) | payer OTHER, SELFPAY | END 2025-05-08 13:21 | disposition home or self-care (01) | LOC: HO.HHCLNP 13:20 | PROVIDERS: Visit Provider Nurse Practitioner Primary Care | DX: K21.9 Gastro-esophageal reflux disease without esophagitis (principal) | CPT/HCPCS: 87338 ==

== ENCOUNTER → 2025-05-08 13:30 | Outpatient (BNV) | payer OTHER, SELFPAY | PROVIDERS: PCP Nurse Practitioner Primary Care; Visit Provider Radiology Body Imaging | DX: N63.21 Unspecified lump in the left breast, upper outer quadrant (principal) | CPT/HCPCS: 76642; 77061; 77065 ==

== ENCOUNTER 2025-05-21 08:55 | Outpatient (AMB) | payer OTHER, SELFPAY ==
--- NOTE | 2025-05-21 08:56 | A.OFFVIS_ITS ---
Vital Signs 05/21/25 09:02 Height 5 ft 5 in Weight 184 lb BMI 30.6 BP 135/68 Blood Pressure Location Rt brachial Position Sitting Pulse 93 Intake Visit Reasons: Lt brst u/s bx 2 o'clock density Intake Note: Patient here for us bx CONSULT, 0.7 cm hypoechoic mass with echogenic halo at 2 o'clock position 7 cm from the nipple. Patient c/o: no breast concerns. Denies lumps, tenderness, itch, nipple discharge. Imaging: MM& Left breast US~ 05-08-2025 Biopsy: today 05-21-2025 @ 10am. [facility] Required: No Accompanied by: Self / Same As Patient Allergies No Known Allergies Allergy (Verified 05/21/25 09:00) Medication List - Last Reconciled 05/21/25 by Ky Varela MD omeprazole 20 mg PO DAILY HPI HPI Lt brst u/s bx 2 o'clock density: Details: [age] year old female referred for a left breast mass. She had undergone screening mammogram last month and this showed focal asymmetry on the left breast. She was brought in for diagnostic mammogram and ultrasound and this showed a 0.4 x 0.1 x 0.4 cm hypoechoic solid mass surrounded by an echogenic halo with a total size of 0.8 x 0.5 x 0.7 cm at the 2 o'clock position of the left breast. An ultrasound biopsy was therefore recommended by the radiologist. She denies any palpable breast mass . Her menarche was at age of 9. Her 1st was at age of 9 . She only had 1 . She she still has her periods. She denies any strong family history of breast cancer. [facility] Medical History Left breast mass Surgical History (Updated 05/21/25 @ 09:01 by KEVIN Perales) S/P removal of left ovary Social History (Updated 05/21/25 @ 09:01 by KEVIN Perales) Alcohol intake: current Alcohol intake frequency: holidays/special occasions only Patient Tobacco Use Status: Never used Tobacco Review of Systems Const Denies chills and Denies fever(s) Card Denies chest pain, Denies dyspnea and Denies dyspnea on exertion Resp Denies cough, Denies dyspnea and Denies dyspnea on exertion GI Denies hematochezia and Denies change in bowel habits Denies hematuria Musc Denies back pain and Denies limited range of motion Neuro Denies focal weakness and Denies convulsions Psych Denies depression and Denies mood swings Physical Exam Const General: comfortable and no acute distress Orientation/consciousness: patient oriented x3 Neck Neck: Yes no lymphadenopathy Chest Other: No palpable breast masses, no axillary lymphadenopathy, no nipple or skin changes Resp Auscultation: clear to auscultation bilaterally Cardio Rhythm: regular rhythm GI Palpation (GI): Soft to palpation, nontender and no guarding Neuro General: patient oriented x3 Assessment & Plan Assessment & Plan (1) Left breast mass: Code(s): N63.20 - Unspecified lump in the left breast, unspecified quadrant Category: Medical Plan: She has a left breast mass on imaging measuring 0.4 x 0.1 by 0.4 cm surrounded by an echogenic halo as described above. An ultrasound biopsy was therefore recommended by the radiologist I explained to her the technique of this procedure. I will see her in the office next week to discuss the path report Orders: Orders US breast ndl core biopsy LT Today N63.20 - Unspecified lump in the left breast, unspecified quadrant Coding Level of Care Code New Pt Level 3 (83626) Diagnoses Left breast mass N63.20
[2025-05-21 09:02] VITALS: BP 135/68; PULSE 93; BMI 30.6
--- OUTSIDE RECORDS SUMMARY | 2025-05-21 10:07 | XMS_ITS | Clinical Summary ---
Author Organization [employer] Address [address] [facility] [address] [place] [address] Care Team Providers Care Textile Colorist Formulator Name Role Phone RockTammi Primary Care Provider [phone] Allergies No known active allergies Medications Blood Pressure Monitor misc Check BP daily 1 each 03/31/2025 Active famotidine (Pepcid) 20 MG tabletIndication s:Gastroesophage al reflux disease, unspecified whether esophagitis present Take 1 tablet twice daily as needed for acid reflux 60 tablet 05/01/2025 Active omeprazole (PriLOSEC) [address] capsuleIndicatio ns:Gastroesophag eal reflux disease, unspecified whether esophagitis present Take 1 capsule twice daily before food. Do not crush or chew. 60 capsule 05/13/2025 Active Active Problems Problem Noted Date Diagnosed [...] Encounters Date Type Department Care Team Description 05/13/2025 Results Follow-Up [facility] [place] [address] Tammi Rock ANP BI US Breast Limited Left 05/13/2025 Results Follow-Up [address] [place] [address] Tammi Rock ANP Helicobacter pylori Antigen, EIA, Stool 05/01/2025 1:15 PM EDT Office Visit [facility] [place] [address] Tammi Rock ANP Gastroesophageal reflux disease, unspecified whether esophagitis present (Primary Dx) 05/01/2025 Travel 04/30/2025 [address] [place] [address] Tammi Rock ANP chartprep 04/27/2025 Orders Only [address] [address] Tammi Rock ANP 04/27/2025 [address]phone [address] [place] [address] Tammi Rock ANP Nurse Triage 04/21/2025 [address]phone [address] [place] [address] Tammi Rock ANP Results 04/01/2025 Results Follow-Up [address] [place] [address] Misa Kolb MD Vitamin D, 25-Hydroxy, Total, Immunoassay, Hepatitis B Surface Antibody, Qualitative 03/31/2025 10:45 AM EDT Office Visit [facility] [place] [address] Misa Kolb MD Routine general medical examination [...] disorder 03/31/2025 Travel 03/30/2025 Travel 03/30/2025 Telephone [facility] [address] [place] [address] Tammi Rock ANP Chart Prep 03/24/2025 Telephone [facility] [address] [place] [address] Tammi Rock ANP Lab Orders 03/17/2025 Telephone [facility] [address] [place], [place] [phone] Tammi Rock ANP Referral from Last 3 [...] Description 06/15/2025 3:15 PM EDT Office Visit [facility] [address] [place] [address] Tammi Rock ANP [address] [place] [address] Health Maintenance Due Date Last Done Comments CT Colonography 1979 Colonoscopy 1979 Colorectal Cancer Screening 1979 FIT DNA/Cologuard 1979 FIT 1979 FOBT 1980 HIV Screening 1980 Sigmoidoscopy 1980 Family Planning (PISQ) 1994 COVID-19 Vaccine ( season) 2025 10/21/2021, 12/21/2020, 11/30/2020 Influenza Vaccine (#1) 2025 , 06/20/2023, 06/14/2022, Additional history exists Lipid Panel 06/17/2025 06/17/2020 Alcohol/Substance Use Screening 03/31/2026 03/31/2025 Depression Screening 03/31/2026 03/31/2025, 03/31/20 25 Disability Screening 03/31/2026 03/31/2025 SDOH Screening 03/31/2026 03/31/2025 Tobacco Screening 05/01/2026 05/01/2025 Pap Smear 08/27/2026 08/27/2023 Mammogram 05/08/2027 05/08/2025, 04/27/2025 Cervical Cancer Screening 08/27/2028 HPV/Cotest 08/27/2028 [...] Name Priority Date/Time Associated Diagnosis Comments BI US BREAST LIMITED LEFT Routine 05/08/2025 12:41 PM EDT BI MAMMOGRAM DIAGNOSTIC TOMOSYNTHESIS ADDED VIEW LEFT Routine 05/08/2025 12:30 PM EDT HELICOBACTER PYLORI AG, EIA, STOOL Routine 05/08/2025 10:30 AM EDT Gastroesophageal reflux disease, unspecified whether esophagitis present BI MAMMOGRAM SCREENING TOMOSYNTHESIS BILATERAL Routine 04/27/2025 [...] Relevant to Health Maintenance Results * BI US Breast Limited Left (05/08/2025 12:41 PM EDT) Anatomical Region Laterality Modality Breast Left Ultrasound 05/08/2025 12:4 1 PM EDT Narrative 05/08/2025 1:18 PM EDT [facility]'s [address] [place] [address] Ultrasound Report Signed Patient: Nancy Phan MR#: [id number] 473 : 1980 Acct:[id number] Age/Sex: 45 / F ADM Date: 05/08/25 Loc: HO.MAMMO Attending Dr: Tammi Rock NP Ordering Physician: TAMMI ROCK NP Date of Service: 05/08/25 Procedure(s): US breast LT limited mamm only Accession Number(s): [id number] cc: TAMMI ROCK NP EXAMINATIONS: 1. MM DIAGNOSTIC DIGITAL BREAST TOMOSYNTHESIS, LEFT 2. Targeted ultrasound of the left breast CLINICAL INFORMATION: Callback from baseline screening for left breast focal asymmetry in the upper outer quadrant anterior to middle depth. COMPARISON: April 27, 2025 TECHNIQUE: Digital breast tomosynthesis is performed in full-field ML 90 degrees along with computer-aided detection (CAD). Synthesized 2D images are generated from the tomosynthesis. Spot compression tomosynthesis images were also obtained. FINDINGS: BREAST COMPOSITION: There are scattered areas of fibroglandular density (ACR BI-RADS breast composition Category b). LEFT BREAST: Approximately 0.7 cm focal asymmetry persists on today's images in the upper outer quadrant at approximately 7 cm from the nipple (spot MLO 13/65, spot CC 38/57) . Targeted ultrasound of the left breast was performed as location of the mammographic finding. The survey shows a 0.4 x 0.1 x 0.4 cm hypoechoic solid mass surrounded by an echogenic halo, with a total size of 0.8 x 0.5 x 0.7 cm at 2 o'clock position at 7 cm from the nipple. Minimal vascularity demonstrated at the periphery of the mass with color Doppler evaluation. This correlates with the mammographic finding. US/US breast LT limited mamm only IMPRESSION: LEFT BREAST: 0.7 cm hypoechoic mass with echogenic halo at 2 o'clock position 7 cm from the nipple. Suspicious findings. Ultrasound-guided needle core biopsy is recommended. ASSESSMENT: BI-RADS 4 - Suspicious finding RECOMMENDATION: Biopsy recommended Results were discussed with the patient at time of visit. This patient's information was entered into a reminder system with a target due date for their next mammogram. Electronically signed by: Megan Monaco MD 05/08/2025 01:15 PM EDT Dictated By: Megan Monaco MD Signed By: <Electronically signed by Megan Monaco MD in OV> 05/08/25 1315 DD/ 1241 TD/TT: 05/08/25 1258 Bearing Grinder: Procedure Note Donotuseinterpreter, Image - 05/08/2025 [facility]'s [address] [place] [address] Ultrasound Report Signed Patient: Nancy PhanMR#: [id number] 473 : 1980Acct:[id number] Age/Sex: 45 / FADM Date: 05/08/25 Loc: HO.MAMMO Attending Dr: Tammi Rock NP Ordering Physician: TAMMI ROCK NP Date of Service: 05/08/25 Procedure(s): US breast LT limited mamm only Accession Number(s): [id number] cc: TAMMI ROCK NP EXAMINATIONS: 1. MM DIAGNOSTIC DIGITAL BREAST TOMOSYNTHESIS, LEFT 2. Targeted ultrasound of the left breast CLINICAL INFORMATION: Callback from baseline screening for left breast focal asymmetry in the upper outer quadrant anterior to middle depth. COMPARISON: April 27, 2025 TECHNIQUE: Digital breast tomosynthesis is performed in full-field ML 90 degrees along with computer-aided detection (CAD). Synthesized 2D images are generated from the tomosynthesis. Spot compression tomosynthesis images were also obtained. FINDINGS: BREAST COMPOSITION: There are scattered areas of fibroglandular density (ACR BI-RADS breast composition Category b). LEFT BREAST: Approximately 0.7 cm focal asymmetry persists on today's images in the upper outer quadrant at approximately 7 cm from the nipple (spot MLO 13/65, spot CC 38/57) . Targeted ultrasound of the left breast was performed as location of the mammographic finding. The survey shows a 0.4 x 0.1 x 0.4 cm hypoechoic solid mass surrounded by an echogenic halo, with a total size of 0.8 x 0.5 x 0.7 cm at 2 o'clock position at 7 cm from the nipple. Minimal vascularity demonstrated at the periphery of the mass with color Doppler evaluation. This correlates with the mammographic finding. US/US breast LT limited mamm only IMPRESSION: LEFT BREAST: 0.7 cm hypoechoic mass with echogenic halo at 2 o'clock position 7 cm from the nipple. Suspicious findings. Ultrasound-guided needle core biopsy is recommended. ASSESSMENT: BI-RADS 4 - Suspicious finding RECOMMENDATION: Biopsy recommended Results were discussed with the patient at time of visit. This patient's information was entered into a reminder system with a target due date for their next mammogram. Electronically signed by: Megan Monaco MD 05/08/2025 01:15 PM EDT Workstation: [employer] Dictated By: Megan Monaco MD Signed By: <Electronically signed by Megan Monaco MD in OV> 05/08/25 1315 DD/ 1241 TD/TT: 05/08/25 1258 Bearing Grinder: us Tammi Rock ANP IMG US PROCEDURES Edited Result - Final * BI Mammogram Diagnostic Tomosynthesis added left (05/08/2025 12:30 PM EDT) Anatomical Region Laterality Modality Breast Left Mammography 05/08/2025 12:3 0 PM EDT Narrative 05/08/2025 1:18 PM EDT [facility]'s [address] [place] [address] Mammography Report Signed Patient: Nancy Phan MR#: [id number] 473 : 1980 Acct:[id number] Age/Sex: 45 / F ADM Date: 05/08/25 Loc: HO.MAMMO Attending Dr: Tammi Rock NP Ordering Physician: TAMMI ROCK NP Results: 4Suspicious Finding Date of Service: 05/08/25 Follow Up: Biopsy Recommend ed Procedure(s): MM tomosynthesis added views L Accession Number(s): [id number] cc: TAMMI ROCK NP EXAMINATIONS: 1. MM DIAGNOSTIC DIGITAL BREAST TOMOSYNTHESIS, LEFT 2. Targeted ultrasound of the left breast CLINICAL INFORMATION: Callback from baseline screening for left breast focal asymmetry in the upper outer quadrant anterior to middle depth. COMPARISON: April 27, 2025 TECHNIQUE: Digital breast tomosynthesis is performed in full-field ML 90 degrees along with computer-aided detection (CAD). Synthesized 2D images are generated from the tomosynthesis. Spot compression tomosynthesis images were also obtained. FINDINGS: BREAST COMPOSITION: There are scattered areas of fibroglandular density (ACR BI-RADS breast composition Category b). LEFT BREAST: Approximately 0.7 cm focal asymmetry persists on today's images in the upper outer quadrant at approximately 7 cm from the nipple (spot MLO 13/65, spot CC 38/57) . Targeted ultrasound of the left breast was performed as location of the mammographic finding. The survey shows a 0.4 x 0.1 x 0.4 cm hypoechoic solid mass surrounded by an echogenic halo, with a total size of 0.8 x 0.5 x 0.7 cm at 2 o'clock position at 7 cm from the nipple. Minimal vascularity demonstrated at the periphery of the mass with color Doppler evaluation. This correlates with the mammographic finding. MM/MM tomosynthesis added views L IMPRESSION: LEFT BREAST: 0.7 cm hypoechoic mass with echogenic halo at 2 o'clock position 7 cm from the nipple. Suspicious findings. Ultrasound-guided needle core biopsy is recommended. ASSESSMENT: BI-RADS 4 - Suspicious finding RECOMMENDATION: Biopsy recommended Results were discussed with the patient at time of visit. This patient's information was entered into a reminder system with a target due date for their next mammogram. Electronically signed by: Megan Monaco MD 05/08/2025 01:15 PM EDT Dictated By: Megan Monaco MD Signed By: <Electronically signed by Megan Monaco MD in OV> 05/08/25 1315 DD/ 1230 TD/TT: 05/08/25 1238 Bearing Grinder: Procedure Note Donotuseinterpreter, Image - 05/08/2025 [place] [facility] [address] [place], [place] [address] Mammography Report Signed Patient: Nancy Phan#: [id number] : 1980Acct:[id number] Age/Sex: 45 / FADM Date: 05/08/25 Loc: HO.MAMMO Attending Dr: Tammi Rock NP Ordering Physician: TAMMI ROCK NPResults: 4Suspicious Finding Date of Service: 05/08/25Follow Up: Biopsy Recommend ed Procedure(s): MM tomosynthesis added views L Accession Number(s): [id number] cc: TAMMI ROCK NP EXAMINATIONS: 1. MM DIAGNOSTIC DIGITAL BREAST TOMOSYNTHESIS, LEFT 2. Targeted ultrasound of the left breast CLINICAL INFORMATION: Callback from baseline screening for left breast focal asymmetry in the upper outer quadrant anterior to middle depth. COMPARISON: April 27, 2025 TECHNIQUE: Digital breast tomosynthesis is performed in full-field ML 90 degrees along with computer-aided detection (CAD). Synthesized 2D images are generated from the tomosynthesis. Spot compression tomosynthesis images were also obtained. FINDINGS: BREAST COMPOSITION: There are scattered areas of fibroglandular density (ACR BI-RADS breast composition Category b). LEFT BREAST: Approximately 0.7 cm focal asymmetry persists on today's images in the upper outer quadrant at approximately 7 cm from the nipple (spot MLO 13/65, spot CC 38/57) . Targeted ultrasound of the left breast was performed as location of the mammographic finding. The survey shows a 0.4 x 0.1 x 0.4 cm hypoechoic solid mass surrounded by an echogenic halo, with a total size of 0.8 x 0.5 x 0.7 cm at 2 o'clock position at 7 cm from the nipple. Minimal vascularity demonstrated at the periphery of the mass with color Doppler evaluation. This correlates with the mammographic finding. MM/MM tomosynthesis added views L IMPRESSION: LEFT BREAST: 0.7 cm hypoechoic mass with echogenic halo at 2 o'clock position 7 cm from the nipple. Suspicious findings. Ultrasound-guided needle core biopsy is recommended. ASSESSMENT: BI-RADS 4 - Suspicious finding RECOMMENDATION: Biopsy recommended Results were discussed with the patient at time of visit. This patient's information was entered into a reminder system with a target due date for their next mammogram. Electronically signed by: Megan Monaco MD 05/08/2025 01:15 PM EDT Dictated By: Megan Monaco MD Signed By: <Electronically signed by Megan Monaco MD in OV> 05/08/25 1315 DD/ 1230 TD/TT: 05/08/25 1238 Bearing Grinder: us Tammi Rock ANP IMG BI PROCEDURES Final Result * Helicobacter pylori??Antigen, EIA, Stool (05/08/2025 10:30 AM EDT) H pylori Ag Stool SEE NOTE [facility] Comment:HELICOBACTER PYLORI AG, EIA, STOOL Micro Number: [id number] Test Status: Final Specimen Source: Stool Specimen Quality: Adequate H.pylori Ag: Not Detected Antimicrobials, proton pump inhibitors, and bismuth preparations inhibit H. pylori and ingestion up to two weeks prior to testing may cause false negative results. If clinically indicated the test should be repeated on a new specimen obtained two weeks after discontinuing treatment. Reference Range: Not DetectedTHIS TEST WAS PERFORMED AT:[facility] [place] [id number] TEE MD Stool Rectal contents / Unknown 05/08/2025 10:30 AM EDT 05/08/2025 1:21 PM EDT Tammi HERNANDEZ LAB BODY FLUIDS AND STOOLS ORDER MINDA Final Result [facility] [address] [place] [phone] * BI Mammogram Screening Tomosynthesis Bilateral (04/27/2025 3:45 PM EDT) Anatomical Region Laterality Modality Breast Bilateral Mammography 04/27/2025 3:45 PM EDT Narrative 04/29/2025 10:07 AM EDT [address] [place] [address] Mammography Report Signed Patient: Nancy Phan MR#: [id number] : 1980 Acct:[id number] Age/Sex: 45 / F ADM Date: 04/27/25 Loc: HO.MAMMO Attending Dr: Tammi Rock NP Ordering Physician: TAMMI ROCK NP Results: 0Incomplete : Needs Additional Imaging Evaluation Date of Service: 04/27/25 Follow Up: Additional Imagi ng Procedure(s): MM tomosynthesis screening BI Accession Number(s): [id number] cc: TAMMI ROCK NP EXAMINATION: MM SCREENING [...] 04/29/25 1004 DD/ 1545 TD/TT: 04/27/25 1605 Bearing Grinder: Procedure Note Donotuseinterpreter, Image - 04/29/20[facility] [address] [place], [place] [address] Mammography Report Signed Patient: Nancy Phan#: [id number] : 1980Acct:[id number] Age/Sex: 45 / FADM Date: 04/27/25 Loc: HO.MAMMO Attending Dr: Tammi Rock NP Ordering Physician: TAMMI ROCK NPResults: 0Incomplete : Needs Additional Imaging Evaluation Date of Service: 04/27/25Follow Up: Additional Imagi ng Procedure(s): MM tomosynthesis screening BI Accession Number(s): [id number] cc: TAMMI ROCK NP EXAMINATION: MM SCREENING [...] 04/29/25 1004 DD/ 1545 TD/TT: 04/27/25 1605 Bearing Grinder: Tammi Rock ANP IMG BI PROCEDURES Final Result * Vitamin D, 25-Hydroxy, Total, Immunoassay (03/31/2025 11:42 AM EDT) Vitamin D 25-OH Total 51.6 >30 ng/mL [facility] Comment: Health Based Reference Values*< 20 ng/mL Wswnfvlza22-96 ng/mL Insufficient> 30 ng/mL Sufficient*Paul HOU. N [...] MD LAB BLOOD ORDERABLES Final Resul t [facility] [address] [place] [phone] * T-SPOT??.TB (03/31/2025 11:42 AM EDT) [facility] T Spot TB Negative Negative [facility] Comment:A negative test resu lt [...] as aquantitative test. TS PANEL A 0 [facility] TS PANEL B 1 [facility] Negative Control Passed [facility] Positive Control Passed [facility] Comment:For additional infor mation, please refer tohttp://education.Focus IP/faq/DEI602(This link is being provided for informational/educational purposes only.)THIS TEST WAS PERFORMED AT:[employer] [id number] [place] [address]IEWTCUZJAYDEN ESPANA MD,PHD 03/31/2025 11:4 2 AM EDT 03/31/2025 1:25 PM EDT Misa Kolb MD LAB BLOOD ORDERABLES Final Resul t Performing Organization Address [facility]/ZIP Co de Phone Number [facility] [address] [place] [phone] * Hepatitis B Surface Antibody, Qualitative (03/31/2025 11:42 AM EDT) ~Hepatitis B Surface Antibody REACTIVE Nonreactive [facility] Comment:REACTIVE: > 11.99 mI U/mL Blood Venous blood specimen / Unknown 03/31/2025 11:42 AM EDT 03/31/2025 1:25 PM EDT Misa Kolb MD LAB BLOOD ORDERABLES Final Resul t Performing Organization Address [facility] Co de Phone Number [facility] [address] [place] [phone] * HPV mRNA E6/E7 w/Reflex to HPV Genotypes 16, 18/45 (08/27/2023 2:19 PM EST) HPV nRNA E6/E7 Not Detected Not Detected [facility] Comment:Methodology: Transcr iption-Mediated AmplificationThis assay detects E6/E7 viral messenger RNA (mRNA) from 14high-risk HPV types (16,18,31,33,35,39,45,51,52,56,58,59,66,68).Cervical sources are required for HPV testing.If a vaginal source from a patient who has had atotal hysterectomy with removal of cervix wassubmitted, please contact the testing laboratoryfor alternative testing options.For additional information, please refer tohttp://education.Focus IP/faq/MDL391w5(This link if provided for information/educational purposes only.)THIS TEST WAS PERFORMED AT:[facility] [place] [id number] TEE MD HPV mRNA E6/E7 [facility] HPV 16 RNA [facility] HPV 18/45 RNA [facility] 08/27/2023 2:19 PM EST 08/28/2023 8:30 AM EST Tressa Ballesteros [facility] CYTOLOGY ORDERABLES F inal Result [facility] [address] [place] [phone] * Pap Smear (08/27/2023 2:19 PM EST) Swab Cervix uteri structure / Unknown 08/27/2023 2:19 PM EST 08/28/2023 8:30 AM EST Narrative [facility] - 09/05/2023 1:01 PM EST ----- ------- Name: NANCY PHAN Age/Sex: 43/F : 1980 Unit#: [id number] Attend Dr: Re08/27/23 Status: PRE REF Location: [facility] Disch: ----- ------- SPEC : [id number] RECD: 08/28/23 STATUS: SELENA ZENIA NUM: [id number] KALEN: 08/27/[address] [facility] [address]: TRESSA BALLESTEROS [facility] ENTERED: 08/28/23 SP TYPE: Pap Smr [facility] DR: ORDERED: Pap Smear Interpretation Satisfactory for evaluation. Blood. Negative for intraepithelial lesion or malignancy. HPV mRNA E6/E7: NOT DETECTED This assay detects E6/E7 viral messenger RNA (mRNA) from 14 high-risk HPV types (16, 18, 31, 33, 35, 39, 45, 51, 52, 56, 58, 59, 66, 68) HPV testing performed by [facility], [place], [place]. See reference laboratory portion of the EMR for entire report. Clinical Information LMP: 08/25/2023 Previous PAP test: Unknown date/findings Material Received ThinPrep-Cervical ----- ------- Signed (signature on file) KRISTEN Rudolph ([facility]) 09/05/23 1301 ----- ------- END OF REPORT Tressa [facility] LAB CYTOLOGY ORDERABLES F inal Result [facility] [address] [place] [phone] * HEPATITIS C AB W/REFL TO HCV RNA, QN, PCR (06/17/2020 1:14 PM EDT) HEPATITIS C ANTIBODY NON-REACT CHIDI NON-REACT CHIDI [facility] INDEX 0.02 <1.00 [facility] Comment: HCV antibody was non-reactive. There is no laboratory evidence of HCV infection. In most cases, no further action is required. However, if recent HCV exposure is suspected, a test for HCV RNA (test code 93976) is suggested. For additional information please refer to http://Zkatter.Focus IP/faq/GSM49a5 (This link is being provided for informational/ educational purposes only.) HEPATITIS C ANTIBODY NON-REACT CHIDI NON-REACT CHIDI [facility] INDEX 0.02 <1.00 [facility] Comment: HCV antibody was non-reactive. There is no laboratory evidence of HCV infection. In most cases, no further action is required. However, if recent HCV exposure is suspected, a test for HCV RNA (test code 61076) is suggested. For additional information please refer to http://Zkatter.Focus IP/faq/DCP83i4 (This link is being provided for informational/ educational purposes only.) 06/17/2020 1:14 PM EDT Historical Provider MD HISTORICAL/NON ORDERABLE LABS Final Result [facility] [address] [place] [address], * LIPID PANEL, STANDARD (06/17/2020 1:14 PM [...] LDL-C. Brigido SS et al. KI. 2013;310(19): 7660-6059 (http://education.SunPods/faq/MRH950) Chol/HDLC Ratio 3.3 <5.0 (calc) [facility] [...] LDL-C. Brigido SS et al. KI. 2013;310(19): 7208-2516 (http://education.careersmore.com/faq/HYG519) Chol/HDLC Ratio 3.3 <5.0 (calc) [facility] 06/17/2020 1:14 PM EDT us Historical Provider LAB BLOOD ORDERABLES Sandy l Result [facility] [address] from Last 3 Months or Most Recently Relevant to Health Maintenance Insurance , [address] [place] [address] Care Teams Textile Colorist Formulator Relationship Specialty Start Date End Date Tammi Rock ANP [address] [place] [phone] PCP - General Family Medicine 04/28/21
--- OUTSIDE RECORDS SUMMARY | 2025-05-21 10:07 | XMS_ITS | Encounter Summary ---
Author Organization [employer] Address [address] [place] [address] Care Team Providers Care Manager Technical Support Name Role Phone Samira Staley Primary Care Provider [phone] Encounter Details Date Type Department Care Team ([facility] st Contact Info) Description 05/13/2025 Results Follow-Up [facility] [address] [place], [place] [phone] Samira Staley ANP [address] [place] [address] BI US Breast Limited Left Social History Tobacco Use Types Packs/Day Years [...] as of this encounter Miscellaneous Notes * Result Encounter Note - DAVID Vyas - 05/13/2025 1:58 PM EDT Hi - I spoke w/ pt about h. Pylori result as well as US and need for biopsy. She has appt w/ [facility] for biopsy on 05/21 at 8:30 AM. No need to call pt. documented in this encounter Plan of Treatment Upcoming Encounters Date Type Department Care Team (Late st Contact Info) Description 06/15/2025 3:15 PM EDT Office Visit [facility] [address] [place] [address] Samira Staley ANP [address] [place] [address] documented as of this encounter Visit Diagnoses Not on filedocumented in this encounter Additional Health Concerns Assessment Noted Time PHQ-9 Depression Total Score: 0 03/31/20 25 10:41 AM EDT documented as of this encounter Care Teams Manager Technical Support Relationship Specialty Start Date End Date Samira Staley ANP [address] [place] [address] PCP - General Family Medicine 04/28/21 documented as of this encounter
--- OUTSIDE RECORDS SUMMARY | 2025-05-21 10:07 | XMS_ITS | Encounter Summary ---
Author Organization [employer] Address [address] [place] [address] Care Team Providers Care Transmission Calibration Engineer Name Role Phone Samira Staley Primary Care Provider [phone] Encounter Details Date Type Department Care Team ([facility] st Contact Info) Description 12/23/2024 Telephone [facility] MED[facility]INE [address] [place], [place] [phone] Samira Staley ANP [address] [place], [place] [phone] Social History Tobacco Use Types Packs/Day Years [...] Visit [facility]INE [address] [place] [address] Samira Staley ANP [address] [place] [address] documented as of this encounter Visit Diagnoses Not on filedocumented in this encounter Care Teams Transmission Calibration Engineer Relationship Specialty Start Date End Date Samira Staley ANP [address] [place] [address] PCP - General Family Medicine 04/28/21 documented as of this encounter
--- OUTSIDE RECORDS SUMMARY | 2025-05-21 10:07 | XMS_ITS | Encounter Summary ---
Author Organization [employer] Address [address] [place] [address] Care Team Providers Care Phonograph Needle Tip Maker Name Role Phone Samira Staley Primary Care Provider [phone] Encounter Details Date Type Department Care Team ([facility] st Contact Info) Description 04/01/2025 Results Follow-Up [facility] [address] [place], [place] [phone] Misa Kolb MD [address] [place] [address] Vitamin D, 25-Hydroxy, Total, Immunoassay, Hepatitis B [...] Description 06/15/2025 3:15 PM EDT Office Visit [facility] [address] [place] [address] Samira Staley ANP [address] [place] [address] documented as of this encounter Visit Diagnoses Not on filedocumented in this encounter Additional Health Concerns Assessment Noted Time PHQ-9 Depression Total Score: 0 03/31/20 25 10:41 AM EDT documented as of this encounter Care Teams Phonograph Needle Tip Maker Relationship Specialty Start Date End Date Samira Stlaey ANP [address] [place] [address] PCP - General Family Medicine 04/28/21 documented as of this encounter
--- OUTSIDE RECORDS SUMMARY | 2025-05-21 10:07 | XMS_ITS | Encounter Summary ---
Author Organization [employer] Address [address] [place] [address] Care Team Providers Care Security Risk Analyst Name Role Phone Samira Staley Primary Care Provider [phone] Reason for Visit * Reason Onset Date Comments Nurse Triage 04/27/2025 Encounter Details Date Type Department Care Team ([facility] st Contact Info) Description 04/27/2025 Telephone [facility]INE [address] [place], [place] [phone] Samira Staley ANP [address] [place] [address] Nurse Triage Social History Tobacco Use Types [...] PCP for this problem. ASK apt with DRAIN TILE MACHINE OPERATOR Luís 05/01/25 @ 115pm. Pt is aware [...] Esophagus pain Pt stated she went to [facility] and vitals were all normal. Pt stated she left before being evaluated by a provider due to wait time. Contact pt at [phone] documented in this encounter Plan of Treatment Upcoming Encounters Date Type Department Care Team (Late st Contact Info) Description 06/15/2025 3:15 PM EDT Office Visit [facility] MED[facility]INE [address] [place] [phone] Samira Staley ANP [address] [place] [address] documented as of this encounter Visit Diagnoses Not on filedocumented in this encounter Additional Health Concerns Assessment Noted Time PHQ-9 Depression Total Score: 0 03/31/20 25 10:41 AM EDT documented as of this encounter Care Teams Security Risk Analyst Relationship Specialty Start Date End Date Samira Staley ANP [address] [place] [address] PCP - General Family Medicine 04/28/21 documented as of this encounter
== END 2025-05-21 09:07 | disposition home or self-care (01) ==
LOC: HO.HGS 08:56
PROVIDERS: PCP Nurse Practitioner Primary Care; Visit Provider Surgery
DX: N63.20 Unspecified lump in the left breast, unspecified quadrant (principal)
CPT/HCPCS: 99203

== ENCOUNTER 2025-05-21 09:28 | Outpatient (REF) | payer OTHER, SELFPAY ==
--- NOTE | ~2025-05-21 | MM_ITS ---
PROCEDURE: ULTRASOUND-GUIDED LEFT BREAST BIOPSY CLINICAL INFORMATION: Solid irregular mass at 2:00 7 cm from the nipple correlating with a mammographic focal asymmetry. COMPARISON: [facility] on PACS. TECHNIQUE: The details of the procedure, as well as the risks, benefits, and alternatives to the procedure were explained to the patient in detail and all of her questions were answered, after which, written informed consent was obtained. PROCEDURE: Prior to the procedure, sonography revealed a solid irregular mass left breast 2:00 7 cm from the nipple. A time-out was performed, the lesion intended for biopsy was targeted and the skin of the left breast was then prepped and draped in the usual sterile fashion. Using sonographic guidance, sterile technique, and 1% lidocaine without epinephrine for local anesthesia, a total of 6 cores were obtained through the targeted area with a 14-gauge biopsy device. At the completion of tissue sampling, a single coil metallic clip was deposited at the biopsy site. An appropriate sample was obtained. The postprocedure 2-view direct digital mammogram reveals satisfactory positioning of the biopsy clip. The patient tolerated the procedure well and, after assuring adequate hemostasis, was discharged in good condition after reviewing postbiopsy breast care instructions. Final pathology results are pending. MM/MM tomosynthesis diagnostic LT IMPRESSION: 1. Uncomplicated sonographically-guided core biopsy of the left breast. The 2-view direct digital postprocedure mammogram reveals satisfactory positioning of the biopsy clip. 2. Final pathology results are pending. A separate report with final recommendations will be issued once these results are made available. Electronically signed by: Kathleen Hein DO 05/21/2025 12:44 PM EDT
[2025-05-21] MEDS: Lidocaine HCl 1 % 20 ML VIAL 9 ML SUBCUT (10:44)
== END 2025-05-21 09:29 | disposition home or self-care (01) ==
LOC: HO.MAMMO 09:28
PROVIDERS: PCP Nurse Practitioner Primary Care; Visit Provider Surgery
DX: Z12.31 Encounter for screening mammogram for malignant neoplasm of breast (principal); N63.21 Unspecified lump in the left breast, upper outer quadrant
CPT/HCPCS: 19083; 77061; 77065; 88305; A4648; J2003

== ENCOUNTER → 2025-05-21 10:00 | Outpatient (BNV) | payer OTHER, SELFPAY | PROVIDERS: PCP Nurse Practitioner Primary Care; Visit Provider Internal Medicine | DX: N63.21 Unspecified lump in the left breast, upper outer quadrant (principal) | CPT/HCPCS: 19083; 77065 ==

== ENCOUNTER 2025-05-27 11:27 | Outpatient (AMB) | payer OTHER, SELFPAY ==
--- NOTE | 2025-05-27 11:29 | MHC.OFFVIS ---
Vital Signs 05/27/25 11:34 Height 5 ft 5 in Weight 189 lb BMI 31.4 BP 117/72 Blood Pressure Location Rt brachial Position Sitting Pulse 80 Intake Visit Reasons: s/p stereo bx 05/21 Intake Note: Patient here s/p stereo left br bx on 05-21-2025. Patient c/o: no concerns. Bx site healing well. Court Transcriber Required: No Accompanied by: Self / Same As Patient Allergies No Known Allergies Allergy (Verified 05/27/25 11:35) Medication List - Last Reconciled 05/27/25 by Ky Varela MD omeprazole 20 mg PO DAILY HPI HPI s/p stereo bx 05/21: Details: She had undergone stereotactic biopsy last 05/21/2025. She is here to discuss the findings. She says she tolerated the procedure well and did not have any complaints. [facility], [facility] Medical History Left breast mass Surgical History S/P removal of left ovary Social History Alcohol intake: current Alcohol intake frequency: holidays/special occasions only Patient Tobacco Use Status: Never used Tobacco Review of Systems Const Denies chills and Denies fever(s) Card Denies chest pain Resp Denies cough Physical Exam Vital Signs: Last Vital Signs Pulse 80 05/27/25 11:34 BP 117/72 05/27/25 11:34 BMI result Body Mass Index 31.4 Const General: comfortable and no acute distress Chest Other: Biopsy site on the left breast without any hematoma mild ecchymosis noted Resp Effort & Inspection: normal respiratory effort Assessment & Plan Assessment & Plan (1) Left breast mass: Code(s): N63.20 - Unspecified lump in the left breast, unspecified quadrant Category: Medical Plan: Status stereotactic biopsy. Fortunately, her path report shows benign findings. She had pseudoangiomatous stromal hyperplasia, focal usual ductal hyperplasia with no atypia or malignancy. I explained to her the benign nature of this pathology. I reminded her to continue with a regular screening mammograms. She can follow up on a p.r.n. basis. Coding Level of Care Code Est Pt Level 2 (77764) Diagnoses Left breast mass N63.20
[2025-05-27 11:34] VITALS: BP 117/72; PULSE 80; BMI 31.4
--- OUTSIDE RECORDS SUMMARY | 2025-05-27 14:50 | XMS_ITS | Encounter Summary ---
Author Organization [employer] Address [address] [place] [address] Care Team Providers Care Drapery And Upholstery Measurer Name Role Phone Samira Staley Primary Care Provider [phone] Reason for Visit * Reason Onset Date Comments Nurse Triage 04/27/2025 Encounter Details Date Type Department Care Team ([facility] st Contact Info) Description 04/27/2025 Telephone [facility] MEDICINE [address] [place], [place] [phone] Samira Staley ANP [address] [place] [address] Nurse Triage Social History Tobacco Use Types [...] PCP for this problem. ASK apt with VISUAL ARTS TEACHER Luís 05/01/25 @ 115pm. Pt is aware [...] Esophagus pain Pt stated she went to [facility] and vitals were all normal. Pt stated she left before being evaluated by a provider due to wait time. Contact pt at [phone] documented in this encounter Plan of Treatment Upcoming Encounters Date Type Department Care Team (Late st Contact Info) Description 06/15/2025 3:15 PM EDT Office Visit [facility] MED[facility]INE [address] [place] [phone] Samira Staley ANP [address] [place] [address] documented as of this encounter Visit Diagnoses Not on filedocumented in this encounter Additional Health Concerns Assessment Noted Time PHQ-9 Depression Total Score: 0 03/31/20 25 10:41 AM EDT documented as of this encounter Care Teams Drapery And Upholstery Measurer Relationship Specialty Start Date End Date Samira Staley ANP [address] [place] [address] PCP - General Family Medicine 04/28/21 documented as of this encounter
--- OUTSIDE RECORDS SUMMARY | 2025-05-27 14:50 | XMS_ITS | Clinical Summary ---
Author Organization [employer] Address [address] [facility] [address] [place] [address] Care Team Providers Care Utilization Management Nurse Name Role Phone RockTammi Primary Care Provider [phone] Allergies No known active allergies Medications Blood [...] Department Care Team Description 05/13/2025 Results Follow-Up [facility] [place] [address] Tammi Rock ANP BI US Breast Limited Left 05/13/2025 Results Follow-Up [address] [address] Tammi Rock ANP Helicobacter pylori Antigen, EIA, Stool 05/01/2025 1:15 PM EDT Office Visit [facility] [place] [address] Tammi Rock ANP Gastroesophageal reflux disease, unspecified whether esophagitis present (Primary Dx) 05/01/2025 Travel 04/30/2025 [address] [address] Tammi Rock ANP chartprep 04/27/2025 Orders Only [address] [address] Tammi Rock ANP 04/27/2025 [address]phone [address] [place] [address] Tammi Rock ANP Nurse Triage 04/21/2025 [address]phone [address] [place] [address] Tammi Rock ANP Results 04/01/2025 Results Follow-Up [address] [place] [address] Misa Kolb MD Vitamin D, 25-Hydroxy, Total, Immunoassay, Hepatitis B Surface Antibody, Qualitative 03/31/2025 10:45 AM EDT Office Visit [facility] [place] [address] Misa Kolb MD Routine general medical examination [...] disorder 03/31/2025 Travel 03/30/2025 Travel 03/30/2025 Telephone [facility] [address] [place] [address] Tammi Rock ANP Chart Prep 03/24/2025 Telephone [facility] [address] [place] [address] Tammi Rock ANP Lab Orders 03/17/2025 Telephone [facility] [address] [place], [place] [phone] Tammi Rock ANP Referral from Last 3 [...] Description 06/15/2025 3:15 PM EDT Office Visit [facility] [address] [place] [address] Tammi Rock ANP [address] [place] [address] Health Maintenance Due Date Last Done Comments [...] 05/01/2026 05/01/2025 Pap Smear 08/27/2026 08/27/2023 Mammogram 05/21/2027 05/21/2025, 0805/2025, 04/27/2025 Cervical Cancer Screening 08/27/2028 HPV/Cotest 08/27/2028 [...] Procedure Name Priority Date/Time Associated Diagnosis Comments HEMATOXYLIN AND EOSIN STAIN Routine 05/21/2025 10:15 AM EDT US BREAST NDL CORE BIOPSY LT Routine 05/21/2025 10:10 AM EDT BI MAMMOGRAM DIAGNOSTIC TOMOSYNTHESIS LEFT Routine 05/21/2025 9:10 AM EDT BI US BREAST LIMITED LEFT Routine 05/08/2025 [...] Recently Relevant to Health Maintenance Results * Hematoxylin and Eosin Stain (05/21/2025 10:15 AM EDT) 05/21/2025 10:1 5 AM EDT 05/21/2025 11:13 AM EDT [facility] - 05/22/2025 2:47 PM EDT ----- ------- Name: SylvesterNancy Age/Sex: 45/F : 1980 Unit#: [id number] Attend Dr: Ky Varela MD Re05/21/25 Status: DEP REF Location: HO.MAMMO Disch: ----- ------- SPEC : [id number] RECD: 05/21/25 STATUS: SELENA REBlu NUM: [id number] KALEN: 05/21/[address]: Kathleen Hein DO ENTERED: 05/21/25 SP TYPE: Surgical OTHR DR: Ky Varela MD, ELI NP ORDERED: HE Stain/2, Gross Micro L4 COMMENTS: As per the specimen requisition slip the specimen is collected at 1015 and placed in formalin at 1023. 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 Clinical History Left breast mass 2 o'clock, question cancer vs other Microscopic Description Microscopic sections reviewed. Material Received Left breast mass 2 o'clock - question cancer vs other Gross Description Received in formalin labeled left breast mass 2 o'clock are several irregular shards and thin and delicate cylindrical threads of mallory-white and gomez-yellow fibrofatty tissue ranging from minute to 1.2 cm in greatest dimension, submitted in toto in a cassette labeled A. CEDS This case was reviewed intradepartmentally. IHC S/NG Disclaimer NOTE: Unless otherwise stated, all tissue is formalin-fixed and paraffin-embedded. Some or all of the immunohistochemical tests reported herein may have been developed and their performance characteristics determined by [facility]. They have not been cleared or approved by the U.S. Food and Drug Administration (FDA). However, the FDA has determined that such clearance or approval is not necessary. This laboratory is certified under the Clinical Laboratory Improvement Amendments of 1988 (CLIA) as qualified to perform high complexity clinical laboratory testing. CONTINUED ON NEXT PAGE ----- ------- Name: Nancy Phan Age/Sex: 45/F : 1980 Unit#: [id number] Attend Dr: Ky Varela MD Re05/21/25 Status: DEP [facility] Disch: ----- ------- SPEC : [id number] RECD: 05/21/25 STATUS: SELENA KNUTSON NUM: [id number] KALEN: 05/21/[address] [facility] DR: Kathleen Hein DO ENTERED: 05/21/25 SP TYPE: Surgical OTHR DR: Ky Varela MD, ELI NP ORDERED: HE Stain/2, Gross Micro L4 COMMENTS: As per the specimen requisition slip the specimen is collected at 1015 and placed in formalin at 1023. Copies To: Ky Varela MD [facility] [address] [place] [address] TAMMI ROCK NP [facility] [address] [facility] [address] [place] [address] Kathleen Hein DO [address] [place] [address] ----- ------- Signed (signature on file) Rafael Gallardo MD 05/22/25 1447 ----- ------- END OF REPORT us Generic External Data Provider LAB BLOOD ORDERAB LES Final Result [facility] [address] [place], [place] [phone] * US BREAST NDL CORE BIOPSY LT (05/21/2025 10:10 AM EDT) Anatomical Region Laterality Modality Abdomen Ultrasound 05/21/2025 10:1 0 AM EDT Narrative 05/21/2025 12:47 PM EDT [facility] [address] [place], [place] [address] Ultrasound Report Signed Patient: Nancy Phan MR#: [id number] 473 : 1980 Acct:[id number] Age/Sex: 45 / F ADM Date: 05/21/25 Loc: HO.MAMMO Attending Dr: Ky Varela MD Ordering Physician: Ky Varela MD Date of Service: 05/21/25 Procedure(s): US breast ndl core biopsy LT Accession Number(s): [id number] cc: Ky Varela MD; TAMMI ROCK NP Reason for Exam: N63.20 - Unspecified lump in the left breast, unspecified quadrant PROCEDURE: ULTRASOUND-GUIDED LEFT BREAST BIOPSY CLINICAL INFORMATION: Solid irregular mass at 2:00 7 cm from the nipple correlating with a mammographic focal asymmetry. COMPARISON: Priors on PACS. TECHNIQUE: The details of the procedure, as well as the risks, benefits, and alternatives to the procedure were explained to the patient in detail and all of her questions were answered, after which, written informed consent was obtained. PROCEDURE: Prior to the procedure, sonography revealed a solid irregular mass left breast 2:00 7 cm from the nipple. A time-out was performed, the lesion intended for biopsy was targeted and the skin of the left breast was then prepped and draped in the usual sterile fashion. Using sonographic guidance, sterile technique, and 1% lidocaine without epinephrine for local anesthesia, a total of 6 cores were obtained through the targeted area with a 14-gauge biopsy device. At the completion of tissue sampling, a single coil metallic clip was deposited at the biopsy site. An appropriate sample was obtained. The postprocedure 2-view direct digital mammogram reveals satisfactory positioning of the biopsy clip. The patient tolerated the procedure well and, after assuring adequate hemostasis, was discharged in good condition after reviewing postbiopsy breast care instructions. Final pathology results are pending. US/US breast ndl core biopsy LT IMPRESSION: 1. Uncomplicated sonographically-guided core biopsy of the left breast. The 2-view direct digital postprocedure mammogram reveals satisfactory positioning of the biopsy clip. 2. Final pathology results are pending. A separate report with final recommendations will be issued once these results are made available. Electronically signed by: Kathleen Hein DO 05/21/2025 12:44 PM EDT Dictated By: Kathleen Hein DO Signed By: <Electronically signed by Kathleen Hein DO in OV> 05/21/25 1244 DD/ 1010 TD/TT: 05/21/25 1044 Fuel Cell Systems Engineer: Procedure Note Donotuseinterpreter, Image - 05/21/2025 [facility] [address] [place] [address] Ultrasound Report Signed Patient: Krista Phan#: [id number] 473 : 1980Acct:[id number] Age/Sex: 45 / FADM Date: 05/21/25 Loc: HO.MAMMO Attending Dr: Ky Varela MD Ordering Physician: Ky Varela MD Date of Service: 05/21/25 Procedure(s): US breast ndl core biopsy LT Accession Number(s): [id number] cc: Ky Varela MD; TAMMI ROCK NP Reason for Exam: N63.20 - Unspecified lump in the left breast,unspecified quadrant PROCEDURE: ULTRASOUND-GUIDED LEFT BREAST BIOPSY CLINICAL INFORMATION: Solid irregular mass at 2:00 7 cm from the nipple correlating with a mammographic focal asymmetry. COMPARISON: Priors on PACS. TECHNIQUE: The details of the procedure, as well as the risks, benefits, and alternatives to the procedure were explained to the patient in detail and all of her questions were answered, after which, written informed consent was obtained. PROCEDURE: Prior to the procedure, sonography revealed a solid irregular mass left breast 2:00 7 cm from the nipple. A time-out was performed, the lesion intended for biopsy was targeted and the skin of the left breast was then prepped and draped in the usual sterile fashion. Using sonographic guidance, sterile technique, and 1% lidocaine without epinephrine for local anesthesia, a total of 6 cores were obtained through the targeted area with a 14-gauge biopsy device. At the completion of tissue sampling, a single coil metallic clip was deposited at the biopsy site. An appropriate sample was obtained. The postprocedure 2-view direct digital mammogram reveals satisfactory positioning of the biopsy clip. The patient tolerated the procedure well and, after assuring adequate hemostasis, was discharged in good condition after reviewing postbiopsy breast care instructions. Final pathology results are pending. US/US breast ndl core biopsy LT IMPRESSION: 1. Uncomplicated sonographically-guided core biopsy of the left breast. The 2-view direct digital postprocedure mammogram reveals satisfactory positioning of the biopsy clip. 2. Final pathology results are pending. A separate report with final recommendations will be issued once these results are made available. Electronically signed by: Kathleen Hein DO 05/21/2025 12:44 PM EDT Dictated By: Kathleen Hein DO Signed By: <Electronically signed by Kathleen Hein DO in OV> 05/21/25 1244 DD/ 1010 TD/TT: 05/21/25 1044 Fuel Cell Systems Engineer: [facility] External Provider IMG US PROCEDURES Final Result * BI Mammogram Diagnostic Tomosynthesis Left (05/21/2025 9:10 AM EDT) Anatomical Region Laterality Modality Breast Left Mammography 05/21/2025 9:10 AM EDT Narrative 05/21/2025 12:47 PM EDT [address] [place] [address] Mammography Report Signed Patient: Nancy Phan MR#: [id number] 473 : 1980 Acct:[id number] Age/Sex: 45 / F ADM Date: 05/21/25 Loc: HO.MAMMO Attending Dr: Ky Varela MD Ordering Physician: Ky Varela MD Results: 4Sus picious Finding Date of Service: 05/21/25 Follow Up: Biopsy Recommend ed Procedure(s): MM tomosynthesis diagnostic LT Accession Number(s): [id number] cc: Ky Varela MD; TAMMI ROCK NP PROCEDURE: ULTRASOUND-GUIDED LEFT BREAST BIOPSY CLINICAL INFORMATION: Solid irregular mass at 2:00 7 cm from the nipple correlating with a mammographic focal asymmetry. COMPARISON: [facility] on PACS. TECHNIQUE: The details of the procedure, as well as the risks, benefits, and alternatives to the procedure were explained to the patient in detail and all of her questions were answered, after which, written informed consent was obtained. PROCEDURE: Prior to the procedure, sonography revealed a solid irregular mass left breast 2:00 7 cm from the nipple. A time-out was performed, the lesion intended for biopsy was targeted and the skin of the left breast was then prepped and draped in the usual sterile fashion. Using sonographic guidance, sterile technique, and 1% lidocaine without epinephrine for local anesthesia, a total of 6 cores were obtained through the targeted area with a 14-gauge biopsy device. At the completion of tissue sampling, a single coil metallic clip was deposited at the biopsy site. An appropriate sample was obtained. The postprocedure 2-view direct digital mammogram reveals satisfactory positioning of the biopsy clip. The patient tolerated the procedure well and, after assuring adequate hemostasis, was discharged in good condition after reviewing postbiopsy breast care instructions. Final pathology results are pending. MM/MM tomosynthesis diagnostic LT IMPRESSION: 1. Uncomplicated sonographically-guided core biopsy of the left breast. The 2-view direct digital postprocedure mammogram reveals satisfactory positioning of the biopsy clip. 2. Final pathology results are pending. A separate report with final recommendations will be issued once these results are made available. Electronically signed by: Kathleen Hein DO 05/21/2025 12:44 PM EDT Dictated By: Kathleen Hein DO Signed By: <Electronically signed by Kathleen Hein DO in OV> 05/21/25 1244 DD/ 0910 TD/TT: 05/21/25 1044 Fuel Cell Systems Engineer: Procedure Note Donotuseinterpreter, Image - 05/21/2025 [facility] [address] [place] [address] [place] [address] Mammography Report Signed Patient: Krista Phan#: [id number] 473 : 1980Acct:[id number] Age/Sex: 45 / FADM Date: 05/21/25 Loc: HO.MAMMO Attending Dr: Ky Varela MD Ordering Physician: Ky Varela MDResults: 4Sus picious Finding Date of Service: 05/21/25Follow Up: Biopsy Recommend ed Procedure(s): MM tomosynthesis diagnostic LT Accession Number(s): [id number] cc: Ky Varela MD; TAMMI ROCK NP PROCEDURE: ULTRASOUND-GUIDED LEFT BREAST BIOPSY CLINICAL INFORMATION: Solid irregular mass at 2:00 7 cm from the nipple correlating with a mammographic focal asymmetry. COMPARISON: [facility] on PACS. TECHNIQUE: The details of the procedure, as well as the risks, benefits, and alternatives to the procedure were explained to the patient in detail and all of her questions were answered, after which, written informed consent was obtained. PROCEDURE: Prior to the procedure, sonography revealed a solid irregular mass left breast 2:00 7 cm from the nipple. A time-out was performed, the lesion intended for biopsy was targeted and the skin of the left breast was then prepped and draped in the usual sterile fashion. Using sonographic guidance, sterile technique, and 1% lidocaine without epinephrine for local anesthesia, a total of 6 cores were obtained through the targeted area with a 14-gauge biopsy device. At the completion of tissue sampling, a single coil metallic clip was deposited at the biopsy site. An appropriate sample was obtained. The postprocedure 2-view direct digital mammogram reveals satisfactory positioning of the biopsy clip. The patient tolerated the procedure well and, after assuring adequate hemostasis, was discharged in good condition after reviewing postbiopsy breast care instructions. Final pathology results are pending. MM/MM tomosynthesis diagnostic LT IMPRESSION: 1. Uncomplicated sonographically-guided core biopsy of the left breast. The 2-view direct digital postprocedure mammogram reveals satisfactory positioning of the biopsy clip. 2. Final pathology results are pending. A separate report with final recommendations will be issued once these results are made available. Electronically signed by: Kathleen Hein DO 05/21/2025 12:44 PM EDT Dictated By: Kathleen Hein DO Signed By: <Electronically signed by Kathleen Hein DO in OV> 05/21/25 1244 DD/ 0910 TD/TT: 05/21/25 1044 Fuel Cell Systems Engineer: [facility] External Provider IMG BI PROCEDURES Final Result * BI US Breast Limited Left (05/08/2025 12:41 PM EDT) Anatomical Region Laterality Modality Breast Left Ultrasound 05/08/2025 12:4 1 PM EDT Narrative 05/08/2025 1:18 PM EDT [address] [place] [address] Ultrasound Report Signed Patient: Nancy Phan MR#: [id number] 473 : 1980 Acct:[id number] Age/Sex: 45 / F ADM Date: 05/08/25 Loc: HO.MAMMO Attending Dr: Tammi Rock NP Ordering Physician: TAMMI ROCK NP Date of Service: 05/08/25 Procedure(s): US breast LT limited mamm only Accession Number(s): [id number] cc: TAMMI ROCK NP EXAMINATIONS: 1. MM [...] 05/08/25 1315 DD/ 1241 TD/TT: 05/08/25 1258 Fuel Cell Systems Engineer: Procedure Note Donotuseinterpreter, Image - 05/08/2025 [facility] [address] [place] [address] Ultrasound Report Signed Patient: Krista Phan#: [id number] 473 : 1980Acct:[id number] Age/Sex: 45 / FADM Date: 05/08/25 Loc: .MAMMO Attending Dr: Tammi Rock NP Ordering Physician: TAMMI ROCK NP Date of Service: 05/08/25 Procedure(s): US breast LT limited mamm only Accession Number(s): [id number] cc: TAMMI ROCK NP EXAMINATIONS: 1. MM [...] 7 cm from the nipple (spot MLO 13/, spot CC 38/57) . Targeted ultrasound of [...] 05/08/25 1315 DD/ 1241 TD/TT: 05/08/25 1258 Fuel Cell Systems Engineer: us Tammi Rock ANP IMG US PROCEDURES Edited Result - Final * BI Mammogram Diagnostic Tomosynthesis added left (05/08/2025 12:30 PM EDT) Anatomical Region Laterality Modality Breast Left Mammography 05/08/2025 12:3 0 PM EDT Narrative 05/08/2025 1:18 PM EDT [facility] [address] [place] [address] Mammography Report Signed Patient: Nancy Phan MR#: [id number] 473 : 1980 Acct:[id number] Age/Sex: 45 / F ADM Date: 05/08/25 Loc: HO.MAMMO Attending Dr: Tammi Rock NP Ordering Physician: TAMMI ROCK NP Results: 4Suspicious Finding Date of Service: 05/08/25 Follow Up: Biopsy Recommend ed Procedure(s): MM tomosynthesis added views L Accession Number(s): [id number] cc: TAMMI ROCK NP EXAMINATIONS: 1. MM [...] 05/08/25 1315 DD/ 1230 TD/TT: 05/08/25 1238 Fuel Cell Systems Engineer: Procedure Note Donotuseinterpreter, Image - 05/08/2025 [facility] [address] [place], [place] [address] Mammography Report Signed Patient: Krista Phan#: [id number] 473 : 1980Acct:[id number] Age/Sex: 45 / FADM Date: 05/08/25 Loc: HO.MAMMO Attending Dr: Tammi Rock NP Ordering Physician: TAMMI ROCK NPResults: 4Suspicious Finding Date of Service: 05/08/25Follow Up: Biopsy Recommend ed Procedure(s): MM tomosynthesis added views L Accession Number(s): [id number] cc: TAMMI ROCK NP EXAMINATIONS: 1. MM [...] Monaco MD 05/08/2025 01:15 PM EDT Workstation: [employer] Dictated By: Megan Monaco MD Signed By: <Electronically signed by Megan Monaco MD in OV> 05/08/25 1315 DD/ 1230 TD/TT: 05/08/25 1238 Fuel Cell Systems Engineer: us Tammi HERNANDEZ IMG BI PROCEDURES Final Result * Helicobacter pylori??Antigen, EIA, Stool (05/08/2025 10:30 AM EDT) H pylori Ag Stool SEE [facility] Comment:HELICOBACTER PYLORI AG, EIA, STOOL Micro Number: [id number] Test Status: Final Specimen Source: Stool Specimen Quality: Adequate H.pylori Ag: Not Detected Antimicrobials, proton pump inhibitors, and bismuth preparations inhibit H. pylori and ingestion up to two weeks prior to testing may cause false negative results. If clinically indicated the test should be repeated on a new specimen obtained two weeks after discontinuing treatment. Reference Range: Not DetectedTHIS TEST WAS PERFORMED AT:[employer] [address] [phone] TEE MD Stool Rectal contents / Unknown 05/08/2025 10:30 AM EDT 05/08/2025 1:21 PM EDT us Tammi HERNANDEZ LAB BODY FLUIDS AND STOOLS ORDER MINDA Final Result [facility] [address] [place] [phone] * BI Mammogram Screening Tomosynthesis Bilateral (04/27/2025 3:45 PM EDT) Anatomical Region Laterality Modality Breast Bilateral Mammography 04/27/2025 3:45 PM EDT Narrative 04/29/2025 10:07 AM EDT [facility] [address] [place] [address] Mammography Report Signed Patient: Nancy Phan MR#: [id number] 473 : 1980 Acct:[id number] Age/Sex: 45 / F ADM Date: 04/27/25 Loc: HO.MAMMO Attending Dr: Tammi Rock NP Ordering Physician: TAMMI ROCK NP Results: 0Incomplete : Needs Additional Imaging Evaluation Date of Service: 04/27/25 Follow Up: Additional Imagi ng Procedure(s): MM tomosynthesis screening BI Accession Number(s): [id number] cc: TAMMI ROCK NP EXAMINATION: MM SCREENING [...] 04/29/25 1004 DD/ 1545 TD/TT: 04/27/25 1605 Fuel Cell Systems Engineer: Procedure Note Donotuseinterpreter, Image - 04/29/2025 [facility] [address] [place], [place] [address] Mammography Report Signed Patient: Krista Phan#: [id number] 473 : 1980Acct:[id number] Age/Sex: 45 / FADM Date: 04/27/25 Loc: HO.MAMMO Attending Dr: Tammi Rock NP Ordering Physician: TAMMI ROCK NPResults: 0Incomplete : Needs Additional Imaging Evaluation Date of Service: 04/27/25Follow Up: Additional Imagi ng Procedure(s): MM tomosynthesis screening BI Accession Number(s): [id number] cc: TAMMI ROCK NP EXAMINATION: MM SCREENING [...] 04/29/25 1004 DD/ 1545 TD/TT: 04/27/25 1605 Fuel Cell Systems Engineer: us Tammi LOPEZ BI PROCEDURES Final Result * Vitamin D, 25-Hydroxy, Total, Immunoassay (03/31/2025 11:42 AM EDT) Vitamin D 25-OH Total 51.6 >30 ng/mL [facility] Comment: Health Based Reference Values*< 20 ng/mL Kfalqkpcp14-68 ng/mL Insufficient> 30 ng/mL Sufficient*Paul HOU. N [...] MD LAB BLOOD ORDERABLES Final Resul t [facility] [address] [place] [address] [phone] * T-SPOT??.TB (03/31/2025 11:42 AM EDT) T Spot TB Negative Negative [facility] Comment:A negative test resu lt [...] as aquantitative test. TS PANEL A 0 [facility] TS PANEL B 1 [facility] Negative Control Passed [facility] Positive Control Passed [facility] Comment:For additional infor binu, please refer tohttp://education.[employer]/faq/VEC890(This link is being provided for informational/educational purposes only.)THIS TEST WAS PERFORMED AT:[employer] [place] [address]NRTGYEFJAYDEN ESPANA MD,PHD 03/31/2025 11:4 2 AM EDT 03/31/2025 1:25 PM EDT us Misa Kolb MD LAB BLOOD ORDERABLES Final Resul t [facility] [address] [place] [address] [phone] * Hepatitis B Surface Antibody, Qualitative (03/31/2025 11:42 AM EDT) ~Hepatitis B Surface Antibody REACTIVE Nonreactive [facility] Comment:REACTIVE: > 11.99 mI U/mL Blood Venous blood specimen / Unknown 03/31/2025 11:42 AM EDT 03/31/2025 1:25 PM EDT us Misa Kolb MD LAB BLOOD ORDERABLES Final Resul t Performing Organization Address [facility]/ZIP Co de Phone Number [facility] [address] [place] [phone] * HPV mRNA E6/E7 w/Reflex to HPV Genotypes 16, 18/45 (08/27/2023 2:19 PM EST) HPV nRNA E6/E7 Not Detected Not Detected [facility] Comment:Methodology: Transcr iption-Mediated AmplificationThis assay detects E6/E7 viral messenger RNA (mRNA) from 14high-risk HPV types (16,18,31,33,35,39,45,51,52,56,58,59,66,68).Cervical sources are required for HPV testing.If a vaginal source from a patient who has had atotal hysterectomy with removal of cervix wassubmitted, please contact the testing laboratoryfor alternative testing options.For additional information, please refer tohttp://education.[employer]/faq/RZH777o0(This link if provided for information/educational purposes only.)THIS TEST WAS PERFORMED AT:[employer] [facility] [place] [id number] TEE MD HPV mRNA E6/E7 [facility] HPV 16 RNA [facility] HPV 18/45 RNA [facility] 08/27/2023 2:19 PM EST 08/28/2023 8:30 AM EST us Tressa Ballesteros CNM LAB CYTOLOGY ORDERABLES F inal Result [facility] [address] [place] [phone] * Pap Smear (08/27/2023 2:19 PM EST) Swab Cervix uteri structure / Unknown 08/27/2023 2:19 PM EST 08/28/2023 8:30 AM EST Muriel [facility] - 09/05/2023 1:01 PM EST ----- ------- Name: NANCY PHAN Age/Sex: 43/F : 1980 Unit#: [id number] Attend Dr: Re08/27/23 Status: PRE [facility] Location: [facility] Disch: ----- ------- SPEC : [id number] RECD: 08/28/23 STATUS: SELENA KNUTSON NUM: [id number] KALEN: 08/27/23-14[address] [facility] [address]: TRESSA BALLESTEROS [facility] ENTERED: 08/28/23 SP TYPE: Pap Smr [facility] DR: ORDERED: Pap Smear Interpretation Satisfactory for evaluation. Blood. Negative for intraepithelial lesion or malignancy. HPV mRNA E6/E7: NOT DETECTED This assay detects E6/E7 viral messenger RNA (mRNA) from 14 high-risk HPV types (16, 18, 31, 33, 35, 39, 45, 51, 52, 56, 58, 59, 66, 68) HPV testing performed by [facility], [place], [place]. See reference laboratory portion of the EMR for entire report. Clinical Information LMP: 08/25/2023 Previous PAP test: Unknown date/findings Material Received ThinPrep-Cervical ----- ------- Signed (signature on file) KRISTEN Rudolph ([facility]) 09/05/23 1301 ----- ------- END OF REPORT us Tressa Ballesteros [facility] LAB CYTOLOGY ORDERABLES F inal Result [facility] [address] [place] [address] [phone] * HEPATITIS C AB W/REFL TO HCV RNA, QN, PCR (06/17/2020 1:14 PM EDT) Pathologist [facility] HEPATITIS C ANTIBODY NON-REACT CHIDI NON-REACT CHIDI [facility] INDEX 0.02 <1.00 [facility] Comment: HCV antibody was non-reactive. There is no laboratory evidence of HCV infection. In most cases, no further action is required. However, if recent HCV exposure is suspected, a test for HCV RNA (test code 65381) is suggested. For additional information please refer to http://education.[employer]/faq/UBK00m8 (This link is being provided for informational/ educational purposes only.) HEPATITIS C ANTIBODY NON-REACT CHIDI NON-REACT CHIDI [facility] INDEX 0.02 <1.00 [facility] Comment: HCV antibody was non-reactive. There is no laboratory evidence of HCV infection. In most cases, no further action is required. However, if recent HCV exposure is suspected, a test for HCV RNA (test code 74305) is suggested. For additional information please refer to http://education.[employer]/faq/BGB08a7 (This link is being provided for informational/ educational purposes only.) 06/17/2020 1:14 PM EDT us Historical Provider MD HISTORICAL/NON ORDERABLE LABS Final Result [facility] [address] * LIPID PANEL, STANDARD (06/17/2020 1:14 [...] factors. LDL-C is now calculated using the Brigido-Odalis calculation, which is a validated novel method providing better accuracy than the Friedewald equation in the estimation of LDL-C. Brigido SS et al. KI. 2013;310(19): 8154-1522 (http://ElasticBox.FinalCAD.[employer]/faq/LEP012) Chol/HDLC Ratio 3.3 <5.0 (calc) [facility] [...] LDL-C. Brigido GILES et al. KI. 2013;310(19): 9615-2967 (http://education.FinalCAD.[employer]/faq/QXS305) Chol/HDLC Ratio 3.3 <5.0 (calc) [facility] 06/17/2020 1:14 PM EDT us Historical Provider LAB BLOOD ORDERABLES Sandy mandujano Result [facility] [address] from Last 3 Months or Most Recently Relevant to Health Maintenance Insurance [facility] , [address] [place] [address] Care Teams Utilization Management Nurse Relationship Specialty Start Date End Date Tammi Rock ANP [address] [place] [phone] PCP - General Family Medicine 04/28/21
--- OUTSIDE RECORDS SUMMARY | 2025-05-27 14:50 | XMS_ITS | Encounter Summary ---
Author Organization [employer] Address [address] [place] [address] Care Team Providers Care Press Tool Maker Name Role Phone Samira Staley Primary Care Provider [phone] Encounter Details Date Type Department Care Team ([facility] st Contact Info) Description 05/13/2025 Results Follow-Up [facility] [address] [place], [place] [phone] Samira Staley ANP [address] [place] [address] BI US Breast Limited Left Social History [...] need for biopsy. She has appt [facility]/ [facility] [place] on 05/21 at 8:30 AM. No need to call pt. documented in this encounter Plan of Treatment Upcoming Encounters Date Type Department Care Team (Late st Contact Info) Description 06/15/2025 3:15 PM EDT Office Visit [facility] [address] [place] [address] Samira Staley ANP [address] [place] [address] documented as of this encounter Visit Diagnoses Not on filedocumented in this encounter Additional Health Concerns Assessment Noted Time PHQ-9 Depression Total Score: 0 03/31/20 25 10:41 AM EDT documented as of this encounter Care Teams Press Tool Maker Relationship Specialty Start Date End Date Samira Staley ANP [address] [place] [address] PCP - General Family Medicine 04/28/21 documented as of this encounter
--- OUTSIDE RECORDS SUMMARY | 2025-05-27 14:50 | XMS_ITS | Encounter Summary ---
Author Organization [employer] Address [address] [place] [address] Care Team Providers Care Sex Crimes Detective Name Role Phone Samira Staley Primary Care Provider [phone] Encounter Details Date Type Department Care Team ([facility] st Contact Info) Description 12/23/2024 Telephone [facility] [address] [place], [place] [phone] Samira Staley ANP [address] [place], [place] [phone] Social History Tobacco Use Types Packs/Day Years [...] Description 06/15/2025 3:15 PM EDT Office Visit [facility] [address] [place] [address] Samira Staley ANP [address] [place] [address] documented as of this encounter Visit Diagnoses Not on filedocumented in this encounter Care Teams Sex Crimes Detective Relationship Specialty Start Date End Date Samira Staley ANP [address] [place] [address] PCP - General Family Medicine 04/28/21 documented as of this encounter
--- OUTSIDE RECORDS SUMMARY | 2025-05-27 14:50 | XMS_ITS | Encounter Summary ---
Author Organization [employer] Address [address] [place] [address] Care Team Providers Care Cooling Machine Operator Name Role Phone Samira Staley Primary Care Provider [phone] Encounter Details Date Type Department Care Team ([facility] st Contact Info) Description 04/01/2025 Results Follow-Up [facility] [address] [place], [place] [phone] Misa Kolb MD [address] [place] [address] Vitamin D, 25-Hydroxy, Total, Immunoassay, Hepatitis B [...] Description 06/15/2025 3:15 PM EDT Office Visit [facility] [address] [place] [address] Samira Staley ANP [address] [place] [address] documented as of this encounter Visit Diagnoses Not on filedocumented in this encounter Additional Health Concerns Assessment Noted Time PHQ-9 Depression Total Score: 0 03/31/20 25 10:41 AM EDT documented as of this encounter Care Teams Cooling Machine Operator Relationship Specialty Start Date End Date Samira Staley ANP [address] [place] [address] PCP - General Family Medicine 04/28/21 documented as of this encounter
== END 2025-05-27 12:42 | disposition home or self-care (01) ==
LOC: HO.HGS 11:27
PROVIDERS: PCP Nurse Practitioner Primary Care; Visit Provider Surgery
DX: N63.20 Unspecified lump in the left breast, unspecified quadrant (principal)
CPT/HCPCS: 99212

== ENCOUNTER 2025-06-30 10:10 | Outpatient (REF) | payer OTHER, SELFPAY ==
--- OUTSIDE RECORDS SUMMARY | 2025-06-30 09:30 | XMS_ITS | Encounter Summary ---
Author Organization [employer] Address [address] [place] [address] Care Team Providers Care Kennel Hand Name Role Phone Samira Staley Primary Care Provider [phone] Reason for Visit * Reason Comments follow up Hospital Encounter Details Date Type Department Care Team ([facility] Contact Info) Description 06/30/2025 9:30 AM EDT Office Visit [facility] [address] [place], [place] [phone] Lam Real MD [address] [place], [place] [phone] Hospital discharge follow-up (Primary Dx) Social History Tobacco Use Types Packs/Day Years [...] AM EDT documented as of this encounter Last Filed Vital Signs Vital Sign Reading Time Taken Comments Blood Pressure 102/74 06/30/2025 9:51 AM EDT Pulse 87 06/30/2025 9:51 AM EDT Temperature 35.8 C (96.5 F) 06/30/2025 9:51 AM EDT Respiratory Rate 20 06/30/2025 9:51 AM EDT Oxygen Saturation 97% 06/30/2025 9:51 AM EDT Inhaled Oxygen Concentration - - Weight 82.9 kg (182 lb 12.8 oz) 06/30/2025 9:51 AM EDT Height - - Body Mass Index 30.42 03/31/2025 10:39 AM EDT documented in this encounter Progress Notes * Lam Erickson MD - 06/30/2025 9:30 AM EDT SUBJECTIVE Cindy Phan is a 45 y.o. female who presents for follow up Hospital. Cindy Phan, 45 years Post-cholecystectomy recovery - Hospitalized for abdominal symptoms, underwent cholecystectomy - Soreness persisting after surgery - Constipation managed with increased fluid intake - Taking prescribed Tylenol and ibuprofen for pain - Oxycodone taken only once on the first day post-surgery, avoided thereafter due to concern for constipation - No abdominal pain reported since surgery - Denies nausea, vomiting, diarrhea, fever - Right-sided abdominal tenderness improved compared to prior to surgery - Awaiting follow-up appointment with surgeon for post-operative evaluation and work clearance HPI Review of Systems Constitutional: Negative for fever. HENT: Negative for sore throat. Respiratory: Negative for cough and shortness of breath. Cardiovascular: Negative for chest pain. Gastrointestinal: Negative for abdominal pain. Neurological: Negative for headaches. Allergies[1] OBJECTIVE Vitals: 06/30/25 0951 BP: 102/74 BP Location: Left arm Patient Position: Sitting BP Cuff Size: Adult Pulse: 87 Resp: 20 Temp: 96.5 ??F (35.8 ??C) TempSrc: Oral SpO2: 97% Weight: 182 lb 12.8 oz (82.9 kg) Physical Exam Vitals reviewed. Constitutional: Appearance: Normal appearance. HENT: Head: Normocephalic and atraumatic. Right Ear: External ear normal. Left Ear: External ear normal. Nose: Nose normal. Mouth/Throat: Mouth: Mucous membranes are moist. Eyes: Conjunctiva/sclera: Conjunctivae normal. Cardiovascular: Rate and Rhythm: Normal rate and regular rhythm. Pulmonary: Effort: Pulmonary effort is normal. Breath sounds: Normal breath sounds. Abdominal: General: Abdomen is flat. A surgical scar is present. Bowel sounds are normal. There is no distension. Palpations: Abdomen is soft. Tenderness: There is abdominal tenderness in the right upper quadrant. Comments: Laparoscopic surgical incisions clean , no redness, no drainage Skin: General: Skin is warm. Neurological: Mental Status: She is alert. Mental status is at baseline. Assessment/Plan Problem List Items Addressed This Visit Hospital discharge follow-up - Primary Patient of Samira staley NP, here for a HDF Admitted to: [facility] from 06/23 until 06/27 after she presented with epigastric abdominal pain and nausea, Diagnosis with pancreatitis in the setting of cholelithiasis. Underwent successful laparoscopic cholecystectomy. Her hospital course was complicated by transaminitis as well as hyperbilirubinemia,which resolved before discharge. It was recommended that patient have an outpatient follow-up. - Patient's overall condition is better. No nausea, vomiting, diarrhea, or fever. Liver was previously noted to be mildly inflamed. - Plan: Ordered repeat blood tests, including those relevant to prior pancreatitis and liver function. Printed lab order for convenience. Advised to contact surgeon today to schedule follow-up appointment for clearance to return to work. PCP to complete [facility] paperwork once surgeon provides recommended dates for work absence. Relevant Orders Lipase Comprehensive Metabolic Panel This note was drafted using Ambient (AI) technology. The patient/patient's guardian has been informed and has consented to the use of this technology: Yes No future appointments. [1] No Known Allergies documented in this encounter Miscellaneous Notes * Assessment & Plan Note - Lam Erickson MD - 06/30/2025 9:17 AM EDT Associated Problem(s): Hospital discharge follow-up Patient of Samira staley NP, here for a HDF Admitted to: [facility] from 06/23 until 06/27 after she presented with epigastric abdominal pain and nausea, Diagnosis with pancreatitis in the setting of cholelithiasis. Underwent successful laparoscopic cholecystectomy. Her hospital course was complicated by transaminitis as well as hyperbilirubinemia,which resolved before discharge. It was recommended that patient have an outpatient follow-up. - Patient's overall condition is better. No nausea, vomiting, diarrhea, or fever. Liver was previously noted to be mildly inflamed. - Plan: Ordered repeat blood tests, including those relevant to prior pancreatitis and liver function. Printed lab order for convenience. Advised to contact surgeon today to schedule follow-up appointment for clearance to return to work. PCP to complete [facility] paperwork once surgeon provides recommended dates for work absence. documented in this encounter Plan of Treatment Scheduled Orders Name Type Priority Associated Diagnoses Orde r Schedule Lipase Lab Routine Hospital discharge follow-up Expected: 06/30/2025, Expires: 06/30/2026 Comprehensive Metabolic Panel Lab Routine Hospital discharge follow-up Ordered: 06/30/2025 documented as of this encounter Visit Diagnoses Diagnosis Hospital discharge follow-up- Primary Other follow-up examination documented in this encounter Additional Health Concerns Assessment Noted Time PHQ-9 Depression Total Score: 0 03/31/20 25 10:41 AM EDT documented as of this encounter Care Teams Kennel Hand Relationship Specialty Start Date End Date Samira Staley ANP [address] [place] [address] PCP - General Family Medicine 04/28/21 documented as of this encounter
--- OUTSIDE RECORDS SUMMARY | 2025-06-30 11:57 | XMS_ITS | Encounter Summary ---
Author Organization [employer] Address [address] [place] [address] Care Team Providers Care Registered Nurse Name Role Phone Samira Staley Primary Care Provider [phone] Encounter Details Date Type Department Care Team (Latest Contact Info) Description 05/13/2025 Results Follow-Up [facility] [address] [place], [place] [phone] Samira Staley ANP [address] [place] [address] BI US Breast Limited Left, BI Mammogram Diagnostic Tomosynthesis Left Social History Tobacco Use Types Packs/Day [...] Result Encounter Note - DAVID Vyas - 06/08/2025 5:17 PM EDT Called pt and discussed * Result Encounter Note - DAVID Vyas - 05/13/2025 1:58 PM EDT Hi - I spoke w/ pt about h. Pylori result as well as US and need for biopsy. She has appt w/ [facility] for biopsy on 05/21 at 8:30 AM. No need to call pt. documented in this encounter Plan of Treatment Not on file documented as of this encounter Visit Diagnoses Not on filedocumented in this encounter Additional Health Concerns Assessment Noted Time PHQ-9 Depression Total Score: 0 03/31/20 25 10:41 AM EDT documented as of this encounter Care Teams Registered Nurse Relationship Specialty Start Date End Date Samira Staley ANP [address] [place] [phone] PCP - General Family Medicine 04/28/21 documented as of this encounter
--- OUTSIDE RECORDS SUMMARY | 2025-06-30 11:57 | XMS_ITS | Encounter Summary ---
Author Organization [employer] Address [address] [place] [address] Care Team Providers Care Art Historian Name Role Phone Luís Samira HERNANDEZ Primary Care Provider [phone] Encounter Details Date Type Department Care Team (Latest Contact Info) Description 06/30/2025 Travel Social History Tobacco Use Types Packs/Day Years [...] as of this encounter Plan of Treatment Not on file documented as of this encounter Visit Diagnoses Not on filedocumented in this encounter Additional Health Concerns Assessment Noted Time PHQ-9 Depression Total Score: 0 03/31/20 25 10:41 AM EDT documented as of this encounter Care Teams Art Historian Relationship Specialty Start Date End Date Samira Staley ANP [address] [place] [address] PCP - General Family Medicine 04/28/21 documented as of this encounter
--- OUTSIDE RECORDS SUMMARY | 2025-06-30 11:58 | XMS_ITS | Encounter Summary ---
Author Organization [employer] Address [address] [place] [address] Care Team Providers Care Audio Visual Director Name Role Phone Samira Staley Primary Care Provider [phone] Encounter Details Date Type Department Care Team ([facility] st Contact Info) Description 12/23/2024 Telephone [facility] [address] [place], [place] [phone] Samira Staley ANP [address] [place], [place] [phone] Social History Tobacco Use Types Packs/Day Years [...] on filedocumented in this encounter Care Teams Audio Visual Director Relationship Specialty Start Date End Date Samira Staley ANP [address] [place] [phone] PCP - General Family Medicine 04/28/21 documented as of this encounter
--- OUTSIDE RECORDS SUMMARY | 2025-06-30 11:58 | XMS_ITS | Clinical Summary ---
Author Organization [employer] Address [address] [place] [address] 7[address] [place] [address] Care Team Providers Care Television Cable Installer Name Role Phone Tammi Rock Primary Care Provider [phone] Allergies No known active allergies Medications Blood [...] crush or chew. 60 capsule 05/13/2025 Active ibuprofen 600 MG tablet Take 600 mg by mouth 4 times daily. 06/07/2021 Active oxyCODONE (Roxicodone) 5 MG immediate release tablet Take 5 mg by mouth every 6 (six) hours if needed. 05/05/2024 06/30/20 25 Active acetaminophen (Tylenol) 325 MG tablet Take 650 mg by mouth every 4 (four) hours if needed. 05/05/2024 Active Active Problems Problem Noted Date Diagnosed Date Hospital discharge follow-up 06/30/2025 Assessment & Plan (06/30/2025 10:40 AM EDT): Patient of Tammi rock NP, here for a HDF Admitted to: [facility] [place] from 06/23 until 06/27 after she presented with epigastric abdominal pain and nausea, Diagnosis with pancreatitis in the setting of cholelithiasis. Underwent successful laparoscopic cholecystectomy. Her hospital course was complicated by transaminitis as well as hyperbilirubinemia, which resolved before discharge. It was recommended that [...] to return to work. PCP to complete [place] paperwork once surgeon provides recommended dates for work absence. H/O benign breast biopsy 06/08/2025 Overview (06/08/2025): L breast 05/21/25 Dr. 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 These results are benign and concordant. Recommend return to annual screening. Elevated BP without diagnosis of hypertension Overview (06/08/2025): Well at goal last visit. BP Readings from Last 1 Encounters: 05/01/25 110/68 Assessment & Plan (04/03/2025 10:47 AM EDT): [...] Encounters Date Type Department Care Team Description 06/30/2025 9:30 AM EDT Office Visit [facility] [place] [address] Lam Real MD Hospital discharge follow-up (Primary Dx) 06/30/2025 Travel 06/29/2025 Telephone [facility] [place] [address] Tammi Rock ANP Appointment Request 06/08/2025 Travel 05/13/2025 Results Follow-Up [facility] [place] [place] [address] Tammi Rock ANP BI US Breast Limited Left, BI Mammogram Diagnostic Tomosynthesis Left 05/13/2025 Results Follow-Up [facility] [place] [address] Tammi Rock ANP Helicobacter pylori Antigen, EIA, Stool 05/01/2025 1:15 PM EDT Office Visit [facility] [place] [address] Tammi Rock ANP Gastroesophageal reflux disease, unspecified whether esophagitis present (Primary Dx) 05/01/2025 Travel 04/30/2025 Telephone [facility] [place] [address] Tammi Rock ANP chartprep 04/27/2025 Orders Only [facility] [place] [address] Tammi Rock ANP 04/27/2025 Telephone [facility] [place] [address] Tammi Rock ANP Nurse Triage 04/21/2025 Telephone [facility] [place] [address] Tammi Rock ANP Results 04/01/2025 Results Follow-Up [facility] [place] [address] Misa Kolb MD Vitamin D, 25-Hydroxy, Total, Immunoassay, Hepatitis B Surface Antibody, Qualitative 03/31/2025 10:45 AM EDT Office Visit [facility] [place] [address] Misa Kolb MD Routine general medical examination [...] disorder 03/31/2025 Travel 03/30/2025 Travel 03/30/2025 Telephone [facility] [address] [place] [address] Tammi Rock ANP Chart Prep from Last 3 Months Immunizations Immunization Administration [...] 12.8 oz) 06/30/2025 9:51 AM EDT Height 165.1 cm (5' 5 ) 03/31/2025 10:3 9 AM EDT Body Mass Index 30.42 03/31/2025 10:39 AM EDT Plan of Treatment [...] 03/31/2026 03/31/2025 Depression Screening 03/31/2026 03/31/2025, 03/31/20 Disability Screening 03/31/2026 03/31/2025 SDOH Screening 03/31/2026 03/31/2025 Tobacco Screening 06/30/2026 06/30/2025 Pap Smear 08/27/2026 08/27/2023 Mammogram 05/21/2027 05/21/2025, 08/05/2025, 04/27/2025 Cervical Cancer Screening 08/27/2028 HPV/Cotest 08/27/2028 [...] 5 AM EDT 05/21/2025 11:13 AM EDT [facility] - 05/22/2025 2:47 PM EDT ----- ------- Name: Nancy Phan Age/Sex: 45/F : 1980 Unit#: [id number] Attend Dr: Ky Varela MD Re05/21/25 Status: [facility] REF Location: HO.MAMMO Disch: ----- ------- SPEC : [id number] RECD: 05/21/25 STATUS: SELENA KNUTSON NUM: [id number] KALEN: 05/21/25-[address] [facility] [address]: Kathleen Hein DO ENTERED: 05/21/25-1117 SP TYPE: Surgical OTHR DR: Ky Varela [...] developed and their performance characteristics determined by [facility]. They have not been cleared or [...] Nancy Phan Age/Sex: 45/F : 1980 Unit#: [id number] Attend Dr: Ky Varela MD Re05/21/25 Status: DEP REF Location: [facility] Disch: ----- ------- SPEC : [id number] RECD: 05/21/25 STATUS: SELENA KNUTSON NUM: [id number] KALEN: 05/21/[address]: Kathleen Hein DO ENTERED: 05/21/25 SP TYPE: Surgical OTHR DR: Ky Varela MD, ELI NP ORDERED: HE Stain/2, Gross Micro L4 COMMENTS: As per the specimen requisition slip the specimen is collected at 1015 and placed in formalin at 1023. Copies To: Ky Varela MD [facility] [address] [place], [place] [phone] TAMMI ROCK NP [facility] [address] [place], [place] [id number] Kathleen Hein DO [address] [place] [address] ----- ------- Signed (signature on file) Rafael Gallardo MD 05/22/25 1447 ----- ------- END OF REPORT us Generic External Data Provider LAB BLOOD ORDERAB LES Final Result [facility] [address] [place], [place] [phone] * US BREAST NDL CORE BIOPSY LT (05/21/2025 10:10 AM EDT) Anatomical Region Laterality Modality Abdomen Ultrasound 05/21/2025 10:1 0 AM EDT Narrative 05/21/2025 12:47 PM EDT [facility] [address] 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 These results are benign and concordant. Recommend return to annual screening. Electronically signed by: Kathleen Hein DO 05/28/2025 02:37 PM EDT RP Addendum Dictated By: Kathleen Hein DO Addendum Signed By: <Electronically signed by Kathleen Hein DO in OV> 05/28/25 1437 Addendum Cosigned By: DD/ /04/1010 TD/TT: 05/21/2508/04/1044 PROCEDURE: ULTRASOUND-GUIDED LEFT BREAST BIOPSY CLINICAL INFORMATION: [...] Kathleen Hein DO 05/21/2025 12:44 PM EDT RP Dictated By: Kathleen Hein DO Signed By: <Electronically signed by Kathleen Hein DO in OV> 05/21/25 1244 DD/ 1010 TD/TT: 05/21/25 1044 Account Liaison: Procedure Note Donotuseinterpreter, Image - 05/28/2025 [facility] [address] 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 These results are benign and concordant. Recommend return to annual screening. Electronically signed by: Kathleen Hein DO 05/28/2025 02:37 PM EDT RP Addendum Dictated By: Kathleen Hein DO Addendum Signed By: <Electronically signed by DO Isa in OV> 05/28/25 1437 Addendum Cosigned By: DD/ /04/1010 TD/TT: 05/21/2508/04/1044 PROCEDURE: ULTRASOUND-GUIDED LEFT BREAST BIOPSY CLINICAL INFORMATION: [...] Hein DO in OV> 05/21/25 1244 DD/ 09 TD/TT: 05/21/251043 Account Liaison: us [facility] External Provider IMG US PROCEDURES Edited Result - Final * BI Mammogram Diagnostic Tomosynthesis Left (05/21/2025 9:10 AM EDT) Anatomical Region Laterality Modality Breast Left Mammography 05/21/2025 9:10 AM EDT Narrative 05/21/2025 12:47 PM EDT [address] 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 These results are benign and concordant. Recommend return to annual screening. Electronically signed by: Kathleen Hein DO 05/28/2025 02:37 PM EDT Addendum Dictated By: Kathleen Hein DO Addendum Signed By: <Electronically signed by Kathleen Hein DO in OV> 05/28/25 1437 Addendum Cosigned By: DD/ /04/910 TD/TT: 05/21/2508/04/1044 PROCEDURE: ULTRASOUND-GUIDED LEFT BREAST BIOPSY CLINICAL INFORMATION: [...] 05/21/25 1244 DD/ 0910 TD/TT: 05/21/25 1044 Account Liaison: Procedure Note Donotuseinterpreter, Image - 05/29/2025 [facility] [address] 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 These results are benign and concordant. Recommend return to annual screening. Electronically signed by: Kathleen Hein DO 05/28/2025 02:37 PM EDT RP Addendum Dictated By: Kathleen Hein DO Addendum Signed By: <Electronically signed by DO Isa in OV> 05/28/25 1437 Addendum Cosigned By: DD/ /04/910 TD/TT: 05/21/2508/04/1044 PROCEDURE: ULTRASOUND-GUIDED LEFT BREAST BIOPSY CLINICAL INFORMATION: [...] 05/21/25 1244 DD/ 0910 TD/TT: 05/21/25 1044 Account Liaison: [facility] External Provider IMG BI PROCEDURES Edited Result - Final * BI US Breast Limited Left (05/08/2025 12:41 PM EDT) Anatomical Region Laterality Modality Breast Left Ultrasound 05/08/2025 12:4 1 PM EDT Narrative 05/08/2025 1:18 PM EDT [address] [place] [address] Ultrasound Report Signed Patient: Nancy Phan MR#: [id number] 473 : 1980 Acct:[id number] Age/Sex: 45 / F ADM Date: 05/08/25 Loc: HO.MAMMO Attending Dr: Tammi Rock NP Ordering Physician: TAMMI ROCK NP Date of Service: 05/08/25 Procedure(s): US breast LT limited mamm only Accession Number(s): [id number] cc: TAMMI ROCK NP EXAMINATIONS: 1. MM [...] Monaco MD 05/08/2025 01:15 PM EDT Workstation: [employer] Dictated By: Megan Monaco MD Signed By: <Electronically signed by Megan Monaco MD in OV> 05/08/25 1315 DD/ 1241 TD/TT: 05/08/25 1258 Account Liaison: Procedure Note Donotuseinterpreter, Image - 05/08/2025 [facility] [address] [place] [address] Ultrasound Report Signed Patient: Krista Phan#: [id number] 473 : 1980Acct:[id number] Age/Sex: 45 / FADM Date: 05/08/25 Loc: HO.MAMMO Attending Dr: Tammi Rock NP Ordering Physician: TAMMI ROCK NP Date of Service: 05/08/25 Procedure(s): US breast LT limited mamm only Accession Number(s): [id number] cc: TAMMI ROCK NP EXAMINATIONS: 1. MM [...] 05/08/25 1315 DD/ 1241 TD/TT: 05/08/25 1258 Account Liaison: us Tammi Rock ANP IMG US PROCEDURES Edited Result - Final * BI Mammogram Diagnostic Tomosynthesis added left (05/08/2025 12:30 PM EDT) Anatomical Region Laterality Modality Breast Left Mammography 05/08/2025 12:3 0 PM EDT Narrative 05/08/2025 1:18 PM EDT [facility] [address] [place], [place] [address] Mammography Report Signed Patient: Nancy Phan MR#: [id number] 473 : 1980 Acct:[id number] Age/Sex: 45 / F ADM Date: 05/08/25 Loc: HO.MAMMO Attending Dr: Tammi Rock NP Ordering Physician: TAMMI ROCK NP Results: 4Suspicious Finding Date of Service: 05/08/25 Follow Up: Biopsy Recommend ed Procedure(s): MM tomosynthesis added views L Accession Number(s): [id number] cc: TAMMI ROCK NP EXAMINATIONS: 1. MM [...] Megan Monaco MD 05/08/2025 01:15 PM EDT RP Dictated By: Megan Monaco MD Signed By: <Electronically signed by Megan Monaco MD in OV> 05/08/25 1315 DD/ 1230 TD/TT: 05/08/25 1238 Account Liaison: Procedure Note Donotuseinterpreter, Image - 05/08/2025 [facility] [address] [place], [place] [address] Mammography Report Signed Patient: Krista Phan#: [id number] 473 : 1980Acct:[id number] Age/Sex: 45 / FADM Date: 05/08/25 Loc: HO.MAMMO Attending Dr: Tammi Rock NP Ordering Physician: TAMMI ROCK NPResults: 4Suspicious Finding Date of Service: 05/08/25Follow Up: Biopsy Recommend ed Procedure(s): MM tomosynthesis added views L Accession Number(s): [id number] cc: TAMMI ROCK NP EXAMINATIONS: 1. MM [...] 7 cm from the nipple (spot MLO /65, spot CC 38/57) . Targeted ultrasound of [...] 05/08/25 1315 DD/ 1230 TD/TT: 05/08/25 1238 Account Liaison: [facility] Rock [facility] BI PROCEDURES Final Result * Helicobacter pylori??Antigen, EIA, Stool (05/08/2025 10:30 AM EDT) H pylori Ag Stool SEE NOTE [facility] Comment:HELICOBACTER PYLORI AG, EIA, STOOL Micro Number: [id number] Test Status: Final Specimen Source: Stool Specimen Quality: Adequate H.pylori Ag: Not Detected Antimicrobials, proton pump inhibitors, and bismuth preparations inhibit H. pylori and ingestion up to two weeks prior to testing may cause false negative results. If clinically indicated the test should be repeated on a new specimen obtained two weeks after discontinuing treatment. Reference Range: Not DetectedTHIS TEST WAS PERFORMED AT:[employer] [place] [phone] TEE MD Stool Rectal contents / Unknown 05/08/2025 10:30 AM EDT 05/08/2025 1:21 PM EDT Tammi Rock ANP LAB BODY FLUIDS AND STOOLS ORDER MINDA Final Result [facility] [address] [place] [address] [phone] * BI Mammogram Screening Tomosynthesis Bilateral (04/27/2025 3:45 PM EDT) Anatomical Region Laterality Modality Breast Bilateral Mammography 04/27/2025 3:45 PM EDT Narrative 04/29/2025 10:07 AM EDT [address] [place] [address] Mammography Report Signed Patient: Nancy Phan MR#: [id number] 473 : 1980 Acct:[id number] Age/Sex: 45 / F ADM Date: 04/27/25 Loc: HO.MAMMO Attending Dr: Tammi Rock NP Ordering Physician: TAMMI ROCK NP Results: 0Incomplete : Needs Additional Imaging Evaluation Date of Service: 04/27/25 Follow Up: Additional Imagi ng Procedure(s): MM tomosynthesis screening BI Accession Number(s): [id number] cc: TAMMI ROCK NP EXAMINATION: MM SCREENING [...] 04/29/25 1004 DD/ 1545 TD/TT: 04/27/25 1605 Account Liaison: Procedure Note Donotuseinterpreter, Image - 04/29/2025 [facility] [address] [place] [address] Mammography Report Signed Patient: Nancy PhanMR#: [id number] 473 : 1980Acct:[id number] Age/Sex: 45 / FADM Date: 04/27/25 Loc: HO.MAMMO Attending Dr: Tammi Rock NP Ordering Physician: TAMMI ROCK NPResults: 0Incomplete : Needs Additional Imaging Evaluation Date of Service: 04/27/25Follow Up: Additional Imagi ng Procedure(s): MM tomosynthesis screening BI Accession Number(s): [id number] cc: TAMMI ROCK NP EXAMINATION: MM SCREENING [...] 04/29/25 1004 DD/ 1545 TD/TT: 04/27/25 1605 Account Liaison: Tammi HERNANDEZ IMBer[facility] BI PROCEDURES Final Result * Vitamin D, 25-Hydroxy, Total, Immunoassay (03/31/2025 11:42 AM EDT) Vitamin D 25-OH Total 51.6 >30 ng/mL [facility] Comment: Health Based Reference Values*< 20 ng/mL Skjwleikd46-67 ng/mL Insufficient> 30 ng/mL Sufficient*Paul HOU. N [...] MD LAB BLOOD ORDERABLES Final Resul t [facility] [address] [place] [address] [phone] * T-SPOT??.TB (03/31/2025 11:42 AM EDT) [facility] T Spot TB Negative Negative [facility] Comment:A negative test resu lt [...] as aquantitative test. TS PANEL A 0 [facility] TS PANEL B 1 [facility] Negative Control Passed [facility] Positive Control Passed [facility] Comment:For additional infor binu, please refer tohttp://education.LegitTrader.eCozy/faq/ZIC457(This link is being provided for informational/educational purposes only.)THIS TEST WAS PERFORMED AT:[employer]/[address] [place] [address]VSJQESTJAYDEN ESPANA MD,PHD 03/31/2025 11:4 2 AM EDT 03/31/2025 1:25 PM EDT us Misa Kolb MD LAB BLOOD ORDERABLES Final Resul t Performing Organization Address City/[facility]/ZIP Co de Phone Number [facility] [address] [place] [address] [phone] * Hepatitis B Surface Antibody, Qualitative (03/31/2025 11:42 AM EDT) Pathologist [facility] ~Hepatitis B Surface Antibody REACTIVE Nonreactive [facility] Comment:REACTIVE: > 11.99 mI U/mL Blood Venous blood specimen / Unknown 03/31/2025 11:42 AM EDT 03/31/2025 1:25 PM EDT Misa Kolb MD LAB BLOOD ORDERABLES Final Resul t Performing Organization Address [facility]/ZIP Co de Phone Number [facility] [address] [place] [address] [phone] * HPV mRNA E6/E7 w/Reflex to HPV Genotypes 16, 18/45 (08/27/2023 2:19 PM EST) [facility] HPV nRNA E6/E7 Not Detected Not Detected [facility] Comment:Methodology: Transcr iption-Mediated AmplificationThis assay detects E6/E7 viral messenger RNA (mRNA) from 14high-risk HPV types (16,18,31,33,35,39,45,51,52,56,58,59,66,68).Cervical sources are required for HPV testing.If a vaginal source from a patient who has had atotal hysterectomy with removal of cervix wassubmitted, please contact the testing laboratoryfor alternative testing options.For additional information, please refer tohttp://education.Mobile Sorcery/faq/PZK013q7(This link if provided for information/educational purposes only.)THIS TEST WAS PERFORMED AT:[employer] [place] [id number] TEE MD HPV mRNA E6/E7 [facility] HPV 16 RNA TNP [facility] HPV 18/45 RNA [facility] 08/27/2023 2:19 PM EST 08/28/2023 8:30 AM EST Tressa Ballesteros CNM LAB CYTOLOGY ORDERABLES F inal Result [facility] [address] [place] [phone] * Pap Smear (08/27/2023 2:19 PM EST) Swab Cervix uteri structure / Unknown 08/27/2023 2:19 PM EST 08/28/2023 8:30 AM EST Narrative [facility] - 09/05/2023 1:01 PM EST ----- ------- Name: NANCY PHAN Age/Sex: 43/F : 1980 Unit#: [id number] Attend Dr: Re08/27/23 Status: PRE [facility] ----- ------- SPEC : [id number] RECD: 08/28/23 STATUS: SELENA KNUTSON NUM: [id number] KALEN: 08/27/23-[address]: TRESSA BALLESTEROS CNM ENTERED: 08/28/23 SP TYPE: Pap Smr OT DR: ORDERED: Pap Smear Interpretation Satisfactory for evaluation. Blood. Negative for intraepithelial lesion or malignancy. HPV mRNA E6/E7: NOT DETECTED This assay detects E6/E7 viral messenger RNA (mRNA) from 14 high-risk HPV types (16, 18, 31, 33, 35, 39, 45, 51, 52, 56, 58, 59, 66, 68) HPV testing performed by [facility], [place], [place]. See reference laboratory portion of the EMR for entire report. Clinical Information LMP: 08/25/2023 Previous PAP test: Unknown date/findings Material Received ThinPrep-Cervical ----- ------- Signed (signature on file) KRISTEN Rudolph (ASCP) 09/05/23 1301 ----- ------- END OF REPORT Tressa Ballesteros [facility] CYTOLOGY ORDERABLES F inal Result [facility] [address] [place] [phone] * HEPATITIS C AB W/REFL TO HCV RNA, QN, PCR (06/17/2020 1:14 PM EDT) HEPATITIS C ANTIBODY NON-REACT CHIDI NON-REACT CHIDI [facility] INDEX 0.02 <1.00 [facility] Comment: HCV antibody was non-reactive. There is no laboratory evidence of HCV infection. In most cases, no further action is required. However, if recent HCV exposure is suspected, a test for HCV RNA (test code 67302) is suggested. For additional information please refer to http://Interviu Me.Mobile Sorcery/faq/PXN26e1 (This link is being provided for informational/ educational purposes only.) HEPATITIS C ANTIBODY NON-REACT CHIDI NON-REACT CHIDI [facility] INDEX 0.02 <1.00 [facility] Comment: HCV antibody was non-reactive. There is no laboratory evidence of HCV infection. In most cases, no further action is required. However, if recent HCV exposure is suspected, a test for HCV RNA (test code 74785) is suggested. For additional information please refer to http://Interviu Me.[employer] Sorcery/faq/CKV75r8 (This link is being provided for informational/ educational purposes only.) 06/17/2020 1:14 PM EDT us Historical Provider HISTORICAL/NON ORDERABLE LABS Final Result [facility] [address] * LIPID PANEL, STANDARD (06/17/2020 1:14 PM EDT) Triglycerides 129 <150 mg/dL [facility] Cholesterol, Total 175 <200 mg/dL [facility] HDL Cholesterol 53 > OR = 50 mg/dL [facility] Triglycerides 129 <150 mg/dL [facility] LDL Cholesterol 99 mg/dL (calc) [facility] Comment: Reference range: <100 Desirable range <100 mg/dL for primary prevention; <70 mg/dL for patients with CHD or diabetic patients with > or = 2 CHD risk factors. LDL-C is now calculated using the Brigido-Odalis calculation, which is a validated novel method providing better accuracy than the Friedewald equation in the estimation of LDL-C. Brigido GILES et al. KI. 2013;310(19): 0180-8834 (http://Interviu Me.Ellie/faq/AGX695) Chol/HDLC Ratio 3.3 <5.0 (calc) [facility] [...] LDL-C. Brigido SS et al. KI. 2013;310(19): 2861-5711 (http://education.Ellie/faq/KAD708) Chol/HDLC Ratio 3.3 <5.0 (calc) [facility] 06/17/2020 1:14 PM EDT us Historical Provider LAB BLOOD ORDERABLES Sandy mandujano Result [facility] [address] from Last 3 Months or Most Recently Relevant to Health Maintenance Insurance [facility] [address] [place] [address] Care Teams Television Cable Installer Relationship Specialty Start Date End Date Tammi Rock ANP [address] [place] [phone] PCP - General Family Medicine 04/28/21
--- OUTSIDE RECORDS SUMMARY | 2025-06-30 11:58 | XMS_ITS | Encounter Summary ---
Author Organization [employer] Address [address] [place] [address] Care Team Providers Care Mental Health Program Director Name Role Phone Samira Staley Primary Care Provider [phone] Reason for Visit * Reason Onset Date Comments Nurse Triage 04/27/2025 Encounter Details Date Type Department Care Team ([facility] st Contact Info) Description 04/27/2025 Telephone [facility] [address] [place], [place] [phone] Samira Staley ANP [address] [place] [address] Nurse Triage Social History Tobacco Use Types [...] PCP for this problem. ASK apt with AQUATIC ECOLOGIST Luís 05/01/25 @ 115pm. Pt is aware [...] Esophagus pain Pt stated she went to [facility] and vitals were all normal. Pt stated she left before being evaluated by a provider due to wait time. Contact pt at [phone] documented in this encounter Plan of Treatment Not on file documented as of this encounter Visit Diagnoses Not on filedocumented in this encounter Additional Health Concerns Assessment Noted Time PHQ-9 Depression Total Score: 0 03/31/20 25 10:41 AM EDT documented as of this encounter Care Teams Mental Health Program Director Relationship Specialty Start Date End Date Samira Staley ANP [address] [place] [address] PCP - General Family Medicine 04/28/21 documented as of this encounter
--- OUTSIDE RECORDS SUMMARY | 2025-06-30 11:58 | XMS_ITS | Encounter Summary ---
Author Organization [employer] Address [address] [place] [address] Care Team Providers Care [employer] Name Role Phone Samira Staley Primary Care Provider [phone] Reason for Visit * Reason Onset Date Comments Appointment Request 06/29/2025 Encounter Details Date Type Department Care Team ([facility] Contact Info) Description 06/29/2025 Telephone [facility] [address] [place], [place] [phone] Samira Staley ANP [address] [place] [address] Appointment Request Social History Tobacco Use Types Packs/Day Years [...] encounter Miscellaneous Notes * Telephone Encounter - Odette Dennis RN - 06/29/2025 12:07 PM EDT 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 Uploaded discharge paperwork to chart. Scheduled for HDF 06/30/[address] Walls. documented in this encounter Plan of Treatment Not on file documented as of this encounter Visit Diagnoses Not on filedocumented in this encounter Additional Health Concerns Assessment Noted Time PHQ-9 Depression Total Score: 0 03/31/20 10:41 AM EDT documented as of this encounter Care Teams [employer] Relationship Specialty Start Date End Date Samira Staley ANP [address] [place] [address] PCP - General Family Medicine 04/28/21 documented as of this encounter
[2025-06-30 12:17] LABS: Alanine Aminotransferase 70 U/L (0-31); Albumin Level 4.0 g/dL (3.5-5.0); Alkaline Phosphatase 81 U/L (39-117); Anion Gap 10 (12-20); Aspartate Amino Transferase 30 U/L (5-31); Blood Urea Nitrogen 11 mg/dL (9-16); Calcium 9.0 mg/dL (8.4-10.2); Carbon Dioxide 27 mmol/L (22-29); Chloride 108 mmol/L (96-108); Estimated Glomerular Filt Rate > 60; Lipase 59 U/L (8-78); Potassium 3.5 mmol/L (3.3-5.1); Sodium 141 mmol/L (135-145); Total Protein 7.0 g/dL (6.5-8.0)
== END 2025-06-30 10:11 | disposition home or self-care (01) ==
LOC: HO.HHCL 10:10
PROVIDERS: PCP Nurse Practitioner Primary Care; Visit Provider Internal Medicine
DX: Z09 Encounter for follow-up examination after completed treatment for conditions other than malignant neoplasm (principal)
CPT/HCPCS: 36415; 80053; 83690